=== PATIENT | male | born 1950 | race Asian ===

== ENCOUNTER 2016-03-03 22:01 | Inpatient (IN) | payer OTHER ==
[~2016-03-03] VITALS: Ht 175.3 cm; Wt 88.5 kg
[~2016-03-03 22:01] MED LIST: ASPIRIN81 M4 PO; CARVEDILOL3.125 M1 PO; LASIX20 MG PO; LISINOPRIL10 M1 PO; PLAVIX 75MG TAB75 MG PO; PROTONIX 40MG T40 MG PO; SIMVASTATIN40 MG PO
--- NOTE | 2016-03-03 22:15 | NUR ---
PT TO TRAIGE WITH MIDDLE ABD PAIN x3DAYS, TODAY PAIN IS CONSTANT AND 8/10, +NAUSEA, VOMITING [id number], AND DIARRHEA. PT DENIES CHEST PAIN, SOB,URINARY S/S. VSS. PT AFEBRILE. EKG DONE IN [place]. HX OF HTN,IL,CHF,MITRAL STENOSIS.
--- NOTE | 2016-03-03 23:10 | NUR ---
EVALUATED BY DR GIFFORD
--- NOTE | 2016-03-03 23:18 | ED GI/GU/ABDOMINAL COMPLAINT ---
See Addendum History of Present Illness General Chief Complaint: Abdominal Pain/Flank Pain Stated Complaint: ABD PAIN Source: patient, family, old records Exam Limitations: no limitations Vital Signs & Intake/Output Vital Signs & Intake/Output Vital Signs Date Time Temp Pulse Resp B/P Pulse O2 O2 Flow FiO2 Ox Delivery Rate 03/04 0848 96.4 79 18 133/72 94 Room Air 03/04 0635 96.7 90 18 123/73 93 Room Air 03/04 0335 97.3 76 18 148/87 95 Room Air 03/04 0034 96.3 80 20 142/66 94 Room Air 03/03 2211 97.5 84 16 174/98 95 Room Air ED Intake and Output 03/04 0000 03/03 1200 Intake Total Output Total Balance Patient 195 lb Weight Allergies Coded Allergies: NO KNOWN ALLERGIES (06/24/10) Reconcile Medications Amiodarone HCl 200 MG TABLET 200 MG PO BID HEART (Reported) Aspirin 325 MG TAB 1 TAB PO DAILY HEART/BLOOD (Reported) Carvedilol 12.5 MG TAB 1 TAB PO BID HEART/BP (Reported) Carvedilol (Coreg) 3.125 MG TABLET 3.125 MG PO BID HEART (Reported) Clopidogrel Bisulfate (Plavix) 75 MG TAB 1 TAB PO DAILY BLOOD THINNER ( Reported) Furosemide (Lasix) 20 MG TAB 1 TAB PO DAILY DIURETIC (Reported) Lisinopril 20 MG TAB 1 TAB PO DAILY BP (Reported) Pantoprazole Sodium (Protonix) 40 MG TAB 40 MG PO DAILY ACID REFLUX (Reported ) Simvastatin 40 MG TAB 40 MG PO DAILY CHOLESTEROL (Reported) Warfarin Sodium (Coumadin) 1 MG TABLET 1 MG PO D HEART (Reported) Triage Note: PT TO TRAIGE WITH MIDDLE ABD PAIN x3DAYS, TODAY PAIN IS CONSTANT AND 8/10, +NAUSEA, VOMITING [id number], AND DIARRHEA. PT DENIES CHEST PAIN, SOB,URINARY S/S. VSS. PT AFEBRILE. EKG DONE IN [place]. HX OF HTN,ME,CHF,MITRAL STENOSIS. Triage Nurses Notes Reviewed? yes HPI: Patient present with sharp stabbing pain in his mid abdomen that started yesterday evening. The patient vomited yesterday evening and then multiple times throughout the day today. Patient also had watery diarrhea this morning. The pain is constant. There is no radiation. There are no aggravating or mitigating factors. Patient denies any fevers or chills. Patient denies any chest pain or shortness of breath. Patient had a recent mitral valve replacement. The pain is 7 out of 10. (ИРИНА CHRISTINE,HENNA Soto) Past History Travel History Traveled to [place] past 21 day No Medical History Any Pertinent Medical History? see below for history Neurological: NONE EENT: NONE Cardiovascular: CHF, hypertension, hyperlipidemia, myocardial infarction, rheumatic fever with consequent mitral stenosis surgical mitral valvuloplasty performed in [place] over 40 years ago. supraventricular arrhythmia Respiratory: NONE Gastrointestinal: GERD, SBO Hepatic: NONE Renal: NONE Musculoskeletal: NONE Psychiatric: NONE Endocrine: NONE Blood Disorders: NONE Cancer(s): NONE History of MRSA: No History of VRE: No History of CDIFF: No Pneumonia Vaccine: 11/18/09 Surgical History Surgical History: CARDIAC CATH, MVR Psychosocial History Who do you live with Family Services at Home None What is your primary language Georgian Tobacco Use: Never used ETOH Use: denies use Illicit Drug Use: denies illicit drug use Family History Hx Contributory? No (HENNA GIFFORD MD) Review of Systems Review of Systems Constitutional: Reports: no symptoms. EENTM: Reports: no symptoms. Respiratory: Reports: no symptoms. Cardiovascular: Reports: no symptoms. GI: Reports: see HPI, abdominal pain, diarrhea, nausea, vomiting. Genitourinary: Reports: no symptoms. Musculoskeletal: Reports: no symptoms. Skin: Reports: no symptoms. Neurological/Psychological: Reports: no symptoms. Hematologic/Endocrine: Reports: no symptoms. Immunologic/Allergic: Reports: no symptoms. All Other Systems: Reviewed and Negative (HENNA GIFFORD MD) Physical Exam Physical Exam General Appearance: well developed/nourished, alert, awake, moderate distress Head: atraumatic Eyes: Bilateral: PERRL, EOMI, other (ANICTERIC). Ears, Nose, Throat, Mouth: hearing grossly normal, DRY MUCOSA Neck: normal inspection, supple, full range of motion Respiratory: normal breath sounds, chest non-tender, no respiratory distress, lungs clear Cardiovascular: regular rate/rhythm, normal peripheral pulses, systolic murmur Gastrointestinal: normal bowel sounds, soft, no organomegaly, tenderness ( PERIUMBILICAL), NO INCREASE IN BOWEL SOUNDS Back: normal inspection, normal range of motion Extremities: normal range of motion Neurologic/Psych: no motor/sensory deficits, awake, alert, oriented x 3, normal gait, normal mood/affect Skin: intact, normal color, warm/dry Core Measures ACS in differential dx? No Severe Sepsis Present: No Septic Shock Present: No (ИРИНА CHRISTINE,HENNA Soto) Progress Differential Diagnosis: AMI, biliary colic, bowel obstruction, cholecystitis, gastritis, hepatitis, ischemic bowel, inflamm bowel dis, pancreatitis, peptic ulcer, PUD/GERD, perforated viscous, SBO, UTI/pyelo Plan of Care: Orders Procedure Date/time Status Nothing by Mouth 03/04 L Active Patient Data 03/04 0934 Active OXYGEN SETUP (GEN) 03/04 921 Active Saline Lock 03/04 921 Active Admit to inpatient 03/04 921 Active Vital Signs 03/04 921 Active Activity/Ambulation 03/04 921 Active Code Status 03/04 921 Active Intake & Output 03/03 2351 Active URINALYSIS 03/03 2318 Complete TROPONIN LEVEL 03/03 2318 Complete PARTIAL THROMBOPLASTIN TIME 03/03 2318 Complete PROTHROMBIN TIME 03/03 2318 Complete LIPASE 03/03 2318 Complete COMPREHENSIVE METABOLIC PANEL 03/03 2318 Complete CBC WITHOUT DIFFERENTIAL 03/03 2318 Complete AMYLASE 03/03 2318 Complete EKG 03/03 2201 Active Laboratory Tests 03/04/16 0520: Urinalysis LIGHT H, Urine Color YEL, Urine Clarity CLEAR, Urine pH 5.5, Ur Specific Sherrill 1.010, Urine Protein TRACE H, Urine Ketones NEG, Urine Nitrite NEG, Urine Bilirubin NEG@ICTO, Urine Urobilinogen 1.0, Ur Leukocyte Esterase NEG , Ur Microscopic SEDIMENT EXAMINED, Urine RBC 1-3, Urine WBC 1-3 H, Urine Hemoglobin NEG, Urine Glucose NEG 03/03/16 2335: Anion Gap 11, Estimated GFR > 60, BUN/Creatinine Ratio 19.0, Glucose 105 H, Calcium 8.9, Total Bilirubin 1.1, AST 37, ALT 58, Alkaline Phosphatase 118, Troponin I < 0.01, Total Protein 7.7, Albumin 3.8, Globulin 3.9, Albumin/ Globulin Ratio 1.0 L, Amylase 65, Lipase 25, PT 23.1 H, INR 2.22 H, APTT 38 H, CBC w Diff NO MAN DIFF REQ, RBC 5.61, MCV 76.7 L, MCH 25.0 L, RDW 18.1 H, MPV 8.0, Gran % 74.9, Lymphocytes % 16.5 L, Monocytes % 7.0, Eosinophils % 1.3, Basophils % 0.3, Absolute Granulocytes 6.5, Absolute Lymphocytes 1.4, Absolute Monocytes 0.6, Absolute Eosinophils 0.1, Absolute Basophils 0, PUBS MCHC 32.5 L Diagnostic Imaging: Viewed by Me: CT Scan. Discussed w/RAD: CT Scan. Initial ED EKG: NSR, LVH, nonspecific ST T wave chg Prior EKG: unchanged Rhythm Strip: normal sinus rhythm Hand-Off Endorsed To: CAMPBELL ZAPATA MD Endorsed Time: 719 Pending: CT Comments: 03/04/2016 1:57:09 AM: Patient is feeling much better. There is no abdominal pain, nausea or vomiting. The son is going home. Patient will be observed in the emergency department for serial abdominal exams tonight. If he remains asymptomatic he can be discharged in the morning however if the pain and/or nausea return a CAT scan with PO contrast will be obtained. (ИРИНА CHRISTINE,HENNA Soto) Radiology Impression: Repeat CT with oral contrast: No change from prior. Dilated fluid-filled proximal small bowel with gradual transition to normal caliber bowel. The ingested enteric contrast remains mostly within the stomach with a small amount extending into the dilated bowel. This finding is nonspecific and could reflect delayed transit. There is wall thickening of a segment of the small bowel again noted which is suspicious for enteritis with possible partial obstruction. Follow-up radiographs of the abdomen could be performed in attempt to determine passage of contrast. Comments: After CT feels bloated with increased pain, nausea, weakness. (CAMPBELL ZAPATA MD) Departure Departure Disposition: STILL A PATIENT Condition: Stable Referrals: RASHI CHRISTINE,LAURA Muñoz (PCP/Family) Departure Forms: Customer Survey General Discharge Information (ИРИНА CHRISTINE,HENNA Soto) Departure Time of Disposition: 919 Clinical Impression Primary Impression: Partial small bowel obstruction Secondary Impressions: Lower abdominal pain, unspecified, Nausea, vomiting and diarrhea Admission Note Spoke With: EHSAN SAMUEL MD Documentation of Exam: Documentation of any treatments & extenuating circumstances including Concerns Regarding Discharge (functional status, medication knowledge or non-compliance, living conditions, etc.) that warrant an admission rather than observation: Nothing by mouth IV fluid IV analgesia IV antiemetic serial abdominal exam advance diet medication adjustment continuing care discharge planning (BENNY CHRISTINE,CAMPBELL)
--- NOTE | 2016-03-03 23:35 | NUR ---
IV ESTABLISHED LABS DRAWN AND SENT N/S 1L WIDE OPEN
[2016-03-03 23:45] LABS: ABSOLUTE BASOPHIL COUNT 0 /CUMM (0.0-0.2); ABSOLUTE EOSINOPHIL COUNT 0.1 /CUMM (0.0-0.7); ABSOLUTE GRANULOCYTE CT 6.5 /CUMM (1.4-6.5); ABSOLUTE LYMPH COUNT 1.4 /CUMM (1.2-3.4); ABSOLUTE MONOCYTE COUNT 0.6 /CUMM (0.10-0.60); BASOPHIL % 0.3 % (0.0-2.0); EOSINOPHIL % 1.3 % (0-5); GRANULOCYTE % 74.9 % (42.2-75.2); MEAN CORPUSCULAR HGB CONC 32.5 G/DL (33.0-37.0); MEAN CORPUSCULAR VOLUME 76.7 FL (80.0-94.0); PLATELET COUNT 225 /CUMM (130-400); RBC DISTRIBUTION WIDTH 18.1 % (11.5-14.5); RED BLOOD CELL CT 5.61 /CUMM (4.70-6.10); WHITE BLOOD CELL COUNT 8.7 /CUMM (4.8-10.8)
--- NOTE | 2016-03-03 23:51 | NUR ---
MEDICATED WITH ZOFRAN AND MORPHINE ORDEREDE
[2016-03-03] MEDS ORDERED: COUMADIN1 M1 PO (23:59)
[2016-03-03] MEDS ORDERED: AMIODARONE HCL200 M1 PO (23:59)
[2016-03-04] MEDS ORDERED: COREG3.125 MG PO
[2016-03-04 00:04] LABS: PT 23.1 SEC (9.4-12.5); PTT 38 SEC (25-37)
--- NOTE | 2016-03-04 01:52 | CT SCAN REPORT ---
EXAMINATION: CT ABDOMEN AND PELVIS WITH CONTRAST CLINICAL INFORMATION: Pain with vomiting and diarrhea. COMPARISON: Abdominal CT 02/10/2015. TECHNIQUE: Multidetector volumetric imaging was performed of the abdomen and pelvis before and after the IV administration of 94 mL of Optiray 320 intravenous contrast. Sagittal and coronal reformatted images were obtained on the technologist's workstation. FINDINGS: The lung bases are clear. The liver, spleen, gallbladder, and pancreas are normal. 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 The kidneys exhibit symmetric nephrograms without evidence of hydronephrosis or nephrolithiasis. There is a cyst within the medial aspect of the lower pole of the left kidney. There are multiple dilated fluid-filled loops of small bowel throughout the abdomen, a few of which appear thick-walled which is a new finding in comparison to the previous study and that may reflect an underlying enteritis or complication from partial obstruction. The degree of small bowel dilatation is increased in comparison to the 02/10/2015 study. There is gradual transition to relatively decompressed small bowel with no discrete transition point on the current exam to suggest a high grade bowel obstruction at this time though an evolving obstruction or partial obstruction is of concern. There is gas within the distal small bowel loops and within the large bowel. The appendix is normal. There is no free air and there is no intra-abdominal free fluid. No mesenteric or retroperitoneal adenopathy. The pelvic viscera are normal. No pelvic adenopathy. No free fluid within the pelvis. Fat-containing inguinal hernias bilaterally. There are no acute osseous abnormalities. Advanced multilevel facet arthropathy throughout the spine as well as hypertrophic opposing spinous processes. There is a 3.4 cm cyst within the left breast that can be further assessed with breast ultrasound. IMPRESSION: - There are multiple dilated fluid-filled loops of small bowel throughout the abdomen, a few of which appear thick-walled which is a new finding in comparison to the previous study and that may reflect an underlying enteritis or complication from partial obstruction. The degree of small bowel dilatation is increased in comparison to the 02/10/2015 study. There is gradual transition to relatively decompressed small bowel with no discrete transition point on the current exam to suggest a high grade bowel obstruction at this time though an evolving obstruction or partial obstruction is of concern. - There is a 3.4 cm cyst within the left breast that can be further assessed with breast ultrasound. - Fat-containing inguinal hernias bilaterally.
--- NOTE | 2016-03-04 02:41 | NUR ---
RE-EVALUATED BY DR GIFFORD FEELS FINE AT THIS TIME
--- NOTE | 2016-03-04 03:36 | NUR ---
PT MEDICATED WITH 4MG MORPHINE PER ORDER (SEE APR) FOR 08/18 ABD PAIN. VSS. DENIES ANY OTHER COMPLAINTS AT THIS TIME.
--- NOTE | 2016-03-04 05:10 | NUR ---
AMBULATED TO STATES HE PASSED ALOT OF GAS AND FEELS BETTER
--- NOTE | 2016-03-04 06:11 | NUR ---
SLEEPING AT PRESENT
--- NOTE | 2016-03-04 06:20 | NUR ---
PT DRINKING FIRST CONTRAST
--- NOTE | 2016-03-04 06:34 | NUR ---
OOB TO BR STATES LIQUID STOOL ,SECOND TIME IN LAST 90 MINUTES AND NOW FEELS MUCH BETTER
--- NOTE | 2016-03-04 07:01 | NUR ---
PT DRANK SECOND CONTRAST, 1/2 BOTTLE
--- NOTE | 2016-03-04 07:16 | NUR ---
ASSUMED CARE OF PT AT THIS TIME. PT RESTING ON STRETCHER, STATES HIS PAIN IS GONE AT THIS TIME. AWARE WAITING TO GO TO CT SCAN.
--- NOTE | 2016-03-04 08:03 | NUR ---
PT TO CT SCAN VIA STRETCHER AT THIS TIME.
--- NOTE | 2016-03-04 08:27 | CT SCAN REPORT ---
EXAMINATION: CT ABDOMEN AND PELVIS WITH CONTRAST CLINICAL INFORMATION: Abnormal CT. Pain with vomiting and diarrhea. COMPARISON: CT from 03/04/2016. Additional CT from 02/10/2015. TECHNIQUE: Multidetector volumetric imaging was performed from the superior aspect of the liver through the pubic symphysis following administration of oral contrast. Sagittal and coronal reformatted images were obtained on the technologist's workstation. DLP: 489 mGy-cm. FINDINGS: LUNG BASES: Minimal bibasilar atelectasis. Partial visualization of the cystic structure of the left breast, as seen on the recent prior. Mitral valve hardware noted. Coronary artery calcifications. LIVER, GALLBLADDER, AND BILIARY TREE: The liver is normal in size, shape, and attenuation. No focal hepatic lesion or biliary ductal dilatation is present. Small amount contrast seen within the gallbladder lumen. No wall thickening. No adjacent inflammatory change. PANCREAS: Unremarkable. SPLEEN: Unremarkable. ADRENAL GLANDS: Unremarkable. KIDNEYS AND URETERS: The kidneys are normal in size, shape, and attenuation. Bilateral contrast excretion noted from the recent contrast enhanced study. Left lower pole renal cyst. No hydronephrosis, hydroureter, or calculi seen. No perinephric stranding. BLADDER: The bladder is contrast filled. No wall thickening. GASTROINTESTINAL TRACT: The stomach appears unremarkable. It is filled with contrast. Contrast extends into the proximal small bowel. The jejunum is dilated. Small amount of contrast extends into the jejunum. There is no significant more distal transit. The appearance of the dilated proximal small bowel is similar to the prior study. This is also similar but increased compared to the more remote study from 02/10/2015. There is no focal abrupt transition point to decompressed small bowel. There is gradual tapering to normal caliber bowel. There is gas and stool seen throughout the colon. There is mild wall thickening of a portion of the small bowel, as seen on the recent prior. Normal appendix. No free air or free fluid. ABDOMINAL WALL: Prominent bilateral fat-containing hernias. LYMPH NODES: Normal. VASCULAR: Scattered atherosclerotic calcifications. PELVIC VISCERA: The prostate is unremarkable. There is prominence of the seminal vesicles, right greater than left with a somewhat lobulated appearance. This is similar to priors. OSSEOUS STRUCTURES: No acute or suspicious osseous abnormality. Mild multilevel degenerative changes of the spine. Mild to moderate degenerative changes of the hips. IMPRESSION: No change from prior. Dilated fluid-filled proximal small bowel with gradual transition to normal caliber bowel. The ingested enteric contrast remains mostly within the stomach with a small amount extending into the dilated bowel. This finding is nonspecific and could reflect delayed transit. There is wall thickening of a segment of the small bowel again noted which is suspicious for enteritis with possible partial obstruction. Follow-up radiographs of the abdomen could be performed in attempt to determine passage of contrast. Partially visualized left breast/chest wall cyst again noted.
--- NOTE | 2016-03-04 09:36 | NUR ---
DR. ZAPATA AT BEDSIDE TO UPDATE PATIENT ON PLAN OF CARE. PT CT SCAN SHOWED NO CHANGE, PT TO BE ADMITTED. PT C/O OF ABDOMINAL PAIN AND NAUSEA. PT MEDICATED WITH 4MG OF IV MORPHINE AND 4MG OF IV ZOFRAN PER eMAR.
--- NOTE | 2016-03-04 09:36 | NUR ---
IV FLUIDS STARTED AT 150ML/HR
--- NOTE | 2016-03-04 10:31 | NUR ---
HOUSE STAFF AT BEDSIDE FOR EVAL
--- NOTE | 2016-03-04 11:26 | NUR ---
PT MEDICATED PER EMAR AT THIS TIME.
[2016-03-04] MEDS ORDERED: PLAVIX75 M1 PAS (11:29)
--- NOTE | 2016-03-04 11:36 | History & Physical ---
ABRAHAM JOSEPH 03/04/16 1135: General Information and HPI MD Statement: I have seen and personally examined YAMEL BLOOM and documented this H&P. The patient is a 65 year old M who presented with a patient stated chief complaint of abdominal pain nausea and vomiting for 3-4 days []. Source of Information: patient, old records Exam Limitations: no limitations History of Present Illness: Patient is 65 year old Italian male with past medical history significant for recurrent small bowel obstruction lasting 2013, CAD status post stent placement in 2007, CABG and mitral valve replacement in November 2015 at [facility] with bioprosthetic valve, hypertension and hyperlipidemia came to chief complaint of abdominal pain, nausea and vomiting for 3 to 4 days that is getting worse since yesterday. He also admit for having loose bowel movements since yesterday and had 3-4 since morning. He denied nausea at this moment and he didn't vomit today. He denies chest pain, palpitations, shortness of breath, fever, chills, any urinary complaints. He endorses that after getting oral contrast today for abdominal CAT scan he is very bloated and his abdomen is tense afterwards. The signs on admission were temperature 96.5, pulse 79, respiratory rate 18, blood pressure 133/72 and patient is saturating 95% on room air. Labs are significant for WBC count 8.7, hemoglobin 14.0, hematocrit 43, platelet count 225, INR 2.22, sodium 141, potassium 3.7, BU and 19 and creatinine 1.0. Urine is clear and CT abdomen with oral contrast showed No change from prior. Dilated fluid-filled proximal small bowel with gradual transition to normal caliber bowel. The ingested enteric contrast remains mostly within the stomach with a small amount extending into the dilated bowel. This finding is nonspecific and could reflect delayed transit. There is wall thickening of a segment of the small bowel again noted which is suspicious for enteritis with possible partial obstruction. Follow-up radiographs of the abdomen could be performed in attempt to determine passage of contrast. Partially visualized left breast/chest wall cyst again noted. Allergies/Medications Allergies: Coded Allergies: NO KNOWN ALLERGIES (06/24/10) Home Med list Aspirin (Aspirin*) 81 MG TAB.CHEW 1 TAB PO DAILY HEART HEALTH (Reported) Carvedilol 3.125 MG TABLET 1 TAB PO BID HEART HEALTH (Reported) Clopidogrel Bisulfate (Plavix) 75 MG TABLET 1 TAB PAS DAILY BLOOD THINNER ( Reported) Furosemide (Lasix) 20 MG TAB 1 TAB PO DAILY DIURETIC (Reported) Lisinopril 10 MG TABLET 1 TAB PO DAILY HIGH BLOOD PRESSUIRE (Reported) Pantoprazole Sodium (Protonix) 40 MG TAB 40 MG PO DAILY ACID REFLUX (Reported ) Simvastatin 40 MG TAB 40 MG PO DAILY CHOLESTEROL (Reported) Warfarin Sodium (Coumadin) 1 MG TABLET 1 MG PO D HEART (Reported) Compliance With Home Meds: FAIR Past History Travel History Traveled to [place] past 21 day No Medical History Neurological: NONE EENT: NONE Cardiovascular: CHF, hypertension, hyperlipidemia, myocardial infarction, rheumatic fever with consequent mitral stenosis surgical mitral valvuloplasty performed in [place] over 40 years ago. supraventricular arrhythmia Respiratory: NONE Gastrointestinal: GERD, SBO Hepatic: NONE Renal: NONE Musculoskeletal: NONE Psychiatric: NONE Endocrine: NONE Blood Disorders: NONE Cancer(s): NONE History of MRSA: No History of VRE: No History of CDIFF: No Pneumonia Vaccine: 11/18/09 Surgical History Surgical History: CARDIAC CATH MVR Past Family/Social History Family History Relations & Conditions if any FATHER ([place] at age 63). MOTHER (CAD). Psychosocial History Services at Home: None ETOH Use: denies use Illicit Drug Use: denies illicit drug use Functional Ability ADLs Independent: dressing, eating, toileting, bathing. Ambulation: independent IADLs Independent: shopping, housework, finances, food prep, telephone, transportation , medication admin. Review of Systems Review of Systems Constitutional: Denies: chills, diaphoresis, fever, malaise. EENTM: Denies: blurred vision, double vision. Cardiovascular: Denies: chest pain, edema. Respiratory: Denies: cough, hemoptysis. GI: Reports: abdominal pain, bloating, diarrhea. Genitourinary: Denies: dysuria. Exam & Diagnostic Data Last 24 Hrs of Vital Signs/I&O Vital Signs Date Time Temp Pulse Resp B/P Pulse O2 O2 Flow FiO2 Ox Delivery Rate 03/04 1128 98.6 86 18 163/81 03/04 1125 98.6 86 18 163/81 03/04 1125 98.6 86 18 163/81 98 Room Air 03/04 0848 96.4 79 18 133/72 94 Room Air 03/04 0635 96.7 90 18 123/73 93 Room Air 03/04 0335 97.3 76 18 148/87 95 Room Air 03/04 0034 96.3 80 20 142/66 94 Room Air 03/03 2211 97.5 84 16 174/98 95 Room Air Intake & Output 03/04 1600 03/04 0800 03/04 0000 Intake Total Output Total Balance Patient 195 lb Weight Physical Exam General Appearance Alert, Oriented X3, Cooperative Skin No Rashes HEENT Atraumatic Cardiovascular Regular Rate, Normal S1, Normal S2, GRADE 2 SYSTOLIC MURMUR Lungs Clear to Auscultation Abdomen Normal Bowel Sounds, TENSE AND DISTENDED ABDOMEN WITH DIFFUSE TENDERNESS Last 24 Hrs of Labs/Armani: Laboratory Tests 03/04/16 0520: Urinalysis LIGHT H, Urine Color YEL, Urine Clarity CLEAR, Urine pH 5.5, Ur Specific [place] 1.010, Urine Protein TRACE H, Urine Ketones NEG, Urine Nitrite NEG, Urine Bilirubin NEG@ICTO, Urine Urobilinogen 1.0, Ur Leukocyte Esterase NEG , Ur Microscopic SEDIMENT EXAMINED, Urine RBC 1-3, Urine WBC 1-3 H, Urine Hemoglobin NEG, Urine Glucose NEG 03/03/16 2335: Anion Gap 11, Estimated GFR > 60, BUN/Creatinine Ratio 19.0, Glucose 105 H, Calcium 8.9, Magnesium 1.7, Total Bilirubin 1.1, AST 37, ALT 58, Alkaline Phosphatase 118, Troponin I < 0.01, Total Protein 7.7, Albumin 3.8, Globulin 3.9 , Albumin/Globulin Ratio 1.0 L, Amylase 65, Lipase 25, PT 23.1 H, INR 2.22 H, APTT 38 H, CBC w Diff NO MAN DIFF REQ, RBC 5.61, MCV 76.7 L, MCH 25.0 L, RDW 18.1 H, MPV 8.0, Gran % 74.9, Lymphocytes % 16.5 L, Monocytes % 7.0, Eosinophils % 1.3, Basophils % 0.3, Absolute Granulocytes 6.5, Absolute Lymphocytes 1.4, Absolute Monocytes 0.6, Absolute Eosinophils 0.1, Absolute Basophils 0, PUBS MCHC 32.5 L Diagnostic Data EKG Results Normal sinus rhythm with QTC of [address]-T wave changes Other Results SERVICE DATE: 03/03/16 EXAM TYPE: CAT - CT ABD & PELVIS W IV CONTRAST EXAMINATION: CT ABDOMEN AND PELVIS WITH CONTRAST CLINICAL INFORMATION: Pain with vomiting and diarrhea. COMPARISON: Abdominal CT 02/10/2015. TECHNIQUE: Multidetector volumetric imaging was performed of the abdomen and pelvis before and after the IV administration of 94 mL of Optiray 320 intravenous contrast. Sagittal and coronal reformatted images were obtained on the technologist's workstation. FINDINGS: The lung bases are clear. The liver, spleen, gallbladder, and pancreas are normal. 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 The kidneys exhibit symmetric nephrograms without evidence of hydronephrosis or nephrolithiasis. There is a cyst within the medial aspect of the lower pole of the left kidney. There are multiple dilated fluid-filled loops of small bowel throughout the abdomen, a few of which appear thick-walled which is a new finding in comparison to the previous study and that may reflect an underlying enteritis or complication from partial obstruction. The degree of small bowel dilatation is increased in comparison to the 02/10/2015 study. There is gradual transition to relatively decompressed small bowel with no discrete transition point on the current exam to suggest a high grade bowel obstruction at this time though an evolving obstruction or partial obstruction is of concern. There is gas within the distal small bowel loops and within the large bowel. The appendix is normal. There is no free air and there is no intra-abdominal free fluid. No mesenteric or retroperitoneal adenopathy. The pelvic viscera are normal. No pelvic adenopathy. No free fluid within the pelvis. Fat-containing inguinal hernias bilaterally. There are no acute osseous abnormalities. Advanced multilevel facet arthropathy throughout the spine as well as hypertrophic opposing spinous processes. There is a 3.4 cm cyst within the left breast that can be further assessed with breast ultrasound. IMPRESSION: - There are multiple dilated fluid-filled loops of small bowel throughout the abdomen, a few of which appear thick-walled which is a new finding in comparison to the previous study and that may reflect an underlying enteritis or complication from partial obstruction. The degree of small bowel dilatation is increased in comparison to the 02/10/2015 study. There is gradual transition to relatively decompressed small bowel with no discrete transition point on the current exam to suggest a high grade bowel obstruction at this time though an evolving obstruction or partial obstruction is of concern. - There is a 3.4 cm cyst within the left breast that can be further assessed with breast ultrasound. - Fat-containing inguinal hernias bilaterally. Assessment/Plan Assessment: Patient is 65 year old Italian male with past medical history significant for recurrent small bowel obstruction lasting 2013, CAD status post stent placement in 2007, CABG and mitral valve replacement in November 2015 at [facility] with bioprosthetic valve, hypertension and hyperlipidemia came to chief complaint of abdominal pain, nausea and vomiting for 3 to 4 days that is getting worse since yesterday and CAT scan done yesterday and today for abdomen and pelvis showed partial small bowel obstruction. We'll admit patient to general medical floor and will take it for the following issues Problem #1 nausea and vomiting with abdominal pain most likely due to partial small bowel obstruction -Vital signs every shift -Adequate electrolyte replacement, we will give a single dose of potassium to keep potassium more than 4 for now and we will follow-up on magnesium levels and replete if needed -We will obtain Surgical consultation and most likely patient would be managed conservatively -Will start patient on PPI prophylactically to reduce chances of stress ulcers -We will place NG tube with intermittent suction and after giving oral medications we will clamp NGT for an hour Problem #2 history of CAD, history of CABG and mitral valve replacement recently -We will confirm medications including carvedilol, Plavix, lisinopril, aspirin with Dr. Christine and will continue on his current home medications. Problem #3 history of atrial fibrillation currently in sinus rhythm but on anticoagulation Coumadin -We'll continue warfarin and will check INR daily and does him accordingly Problem #4 history of hyperlipidemia Problem #5 chest wall/breast cyst on CAT scan Can be pursued as outpatient by PCP Will continue statins. Patient is nothing by mouth Pharmacological DVT prophylaxis Patient is full code As Ranked By This Provider Problem List: 1. Nausea, vomiting and diarrhea 2. Partial small bowel obstruction Core Measures/Miscellaneous Acute Coronary Syndrome ACS Diagnosis: No Cerebrovascular Accident CVA/TIA Diagnosis: No Congestive Heart Failure CHF Diagnosis: No Venous Thromboembolism VTE Risk Factors: Age > 40 VTE Prophylaxis Ordered Inpt: [facility] prophylaxis d/t: No contraindications No VTE Pharm Prophylaxis d/t: No contraindications VTE Diagnosis: No VTE Type: NONE VTE Confirmed by (Test): NONE Severe Sepsis Severe Sepsis Present: No Septic Shock Septic Shock Present: No Miscellaneous Documentation Attending Case Discussed With: EVE ALVARES MD Primary Care Physician: LAURA MARKHAM MD Patient sees these Specialists [employer] Level of Patient Care: General Medicine Consults Needed: Consulting Specialty: General Surgery Resident Review Statement Resident Statement: examined this patient Other Findings: Patient is admitted by resident EVE ALVARES MD 03/04/16 1534: Attending MD Review Statement Attending Statement Attending Statement: examined this patient, discuss w/resident/PA/LAPEL PADDER, agreed w/resident/PA/LAPEL PADDER, reviewed EMR data (avail), discussed with nursing, reviewed images, amended to note Attending Assessment/Plan: 65 y/o M with h sig for ch systolic CHF, hypertension, hyperlipidemia, myocardial infarction, rheumatic fever history of cardiac cath, recent MVR as well as CABG, history of SBO. Patient p/w abd pain, nausea, vomiting and some diarrhea. Symptoms started 2 days ago. Patient started to vomit and had diarrhea this morning. He denies any bright red blood per rectum. He did complain of loose watery stools. The vomiting also had no hematemesis. He is complaining of abdominal pain with a tense abdomen. After inserting the NG tube , he's feeling some relief. He currently denies any chest pain or shortness of breath. Vital Signs Date Time Temp Pulse Resp B/P Pulse O2 O2 Flow FiO2 Ox Delivery Rate 03/04 1318 98.2 88 19 132/90 93 Room Air 03/04 1128 98.6 86 18 163/81 03/04 1125 98.6 86 18 163/81 03/04 1125 98.6 86 18 163/81 98 Room Air 03/04 0848 96.4 79 18 133/72 94 Room Air 03/04 0635 96.7 90 18 123/73 93 Room Air 03/04 0335 97.3 76 18 148/87 95 Room Air 03/04 0034 96.3 80 20 142/66 94 Room Air 03/03 2211 97.5 84 16 174/98 95 Room Air on exam; aox3, nad. cv; s1,s2, rrr. resp; clera abd; firm, generalized tenderness on palpation, bs hypoactive. ext; no edema. Laboratory Tests 03/04 03/03 0520 2335 Chemistry Sodium (137 - 145 mmol/L) 141 Potassium (3.5 - 5.1 mmol/L) 3.7 Chloride (98 - 107 mmol/L) 104 Carbon Dioxide (22 - 30 mmol/L) 26 Anion Gap (5 - 16) 11 BUN (9 - 20 mg/dL) 19 Creatinine (0.7 - 1.2 mg/dL) 1.0 Estimated GFR (>60 ml/min) > 60 BUN/Creatinine Ratio (7 - 25 %) 19.0 Glucose (65 - 99 mg/dL) 105 H Calcium (8.4 - 10.2 mg/dL) 8.9 Magnesium (1.6 - 2.3 mg/dL) 1.7 Total Bilirubin (0.2 - 1.3 mg/dL) 1.1 AST (17 - 59 U/L) 37 ALT (21 - 72 U/L) 58 Alkaline Phosphatase (< 127 U/L) 118 Troponin I (<0.11 ng/ml) < 0.01 Total Protein (6.3 - 8.2 g/dL) 7.7 Albumin (3.5 - 5.0 g/dL) 3.8 Globulin (1.9 - 4.2 gm/dL) 3.9 Albumin/Globulin Ratio (1.1 - 2.2 %) 1.0 L Amylase (30 - 110 U/L) 65 Lipase (23 - 300 U/L) 25 Coagulation PT (9.4 - 12.5 SEC) 23.1 H INR (0.90 - 1.17) 2.22 H APTT (25 - 37 SEC) 38 H Hematology CBC w Diff NO MAN DIFF REQ WBC (4.8 - 10.8 /CUMM) 8.7 RBC (4.70 - 6.10 /CUMM) 5.61 Hgb (14.0 - 18.0 G/DL) 14.0 Hct (42 - 52 %) 43.0 MCV (80.0 - 94.0 FL) 76.7 L MCH (27.0 - 31.0 PG) 25.0 L RDW (11.5 - 14.5 %) 18.1 H Plt Count (130 - 400 /CUMM) 225 MPV (7.4 - 10.4 FL) 8.0 Gran % (42.2 - 75.2 %) 74.9 Lymphocytes % (20.5 - 51.1 %) 16.5 L Monocytes % (1.7 - 9.3 %) 7.0 Eosinophils % (0 - 5 %) 1.3 Basophils % (0.0 - 2.0 %) 0.3 Absolute Granulocytes (1.4 - 6.5 /CUMM) 6.5 Absolute Lymphocytes (1.2 - 3.4 /CUMM) 1.4 Absolute Monocytes (0.10 - 0.60 /CUMM) 0.6 Absolute Eosinophils (0.0 - 0.7 /CUMM) 0.1 Absolute Basophils (0.0 - 0.2 /CUMM) 0 PUBS MCHC (33.0 - 37.0 G/DL) 32.5 L Urines Urinalysis LIGHT H Urine Color (YEL,AMB,STR) YEL Urine Clarity (CLEAR) CLEAR Urine pH (5.0 - 8.0) 5.5 Ur Specific [place] (1.001 - 1.035) 1.010 Urine Protein (NEG,<30 MG/DL) TRACE H Urine Ketones (NEG) NEG Urine Nitrite (NEG) NEG Urine Bilirubin (NEG) NEG@ICTO Urine Urobilinogen (0.1 - 1.0 EU/dl) 1.0 Ur Leukocyte Esterase (NEG) NEG Ur Microscopic SEDIMENT EXAMINED Urine RBC (0 - 5 /HPF) 1-3 Urine WBC (0 - 2 /HPF) 1-3 H Urine Hemoglobin (NEG) NEG Urine Glucose (N MG/DL) NEG CT abd/pelvis with IV contrast: IMPRESSION: - There are multiple dilated fluid-filled loops of small bowel throughout the abdomen, a few of which appear thick-walled which is a new finding in comparison to the previous study and that may reflect an underlying enteritis or complication from partial obstruction. The degree of small bowel dilatation is increased in comparison to the 02/10/2015 study. There is gradual transition to relatively decompressed small bowel with no discrete transition point on the current exam to suggest a high grade bowel obstruction at this time though an evolving obstruction or partial obstruction is of concern. - There is a 3.4 cm cyst within the left breast that can be further assessed with breast ultrasound. - Fat-containing inguinal hernias bilaterally. CT abd/pelvis with oral contrast. IMPRESSION: No change from prior. Dilated fluid-filled proximal small bowel with gradual transition to normal caliber bowel. The ingested enteric contrast remains mostly within the stomach with a small amount extending into the dilated bowel. This finding is nonspecific and could reflect delayed transit. There is wall thickening of a segment of the small bowel again noted which is suspicious for enteritis with possible partial obstruction. Follow-up radiographs of the abdomen could be performed in attempt to determine passage of contrast. Partially visualized left breast/chest wall cyst again noted. xray Abd; IMPRESSION: 1. The tip of the nasogastric tube is located within the proximal stomach. 2. The obstructed small bowel measures at least 4 cm diameter; no pneumoperitoneum. A/P; 65 y/o M with pmh sig for ch systolic CHF, hypertension, hyperlipidemia, myocardial infarction, rheumatic fever history of cardiac cath, recent MVR as well as CABG, history of SBO admitted with abdominal pain, nausea and vomiting secondary to partial small bowel obstruction. Patient admitted to medicine. NG tube was inserted. Please put it at low intermittent suction. Patient will need serial abdominal exams as well as serial abdominal x-rays. Please obtain another abdominal x-ray in the morning. Please make sure that electrolytes are repleted. Please keep potassium 4 orabove as well as magnesium 2 or above. With patient's history of chronic systolic CHF, we need to keep an eye on his respiratory status while he is getting gentle IV hydration. Please do not exceed the fluid rate more than 75 mL an hour. Please continue other home medications after confirming the right doses. Please consult surgery. INR therapeutic. Please dose Coumadin accordingly. Patient will be kept nothing by mouth. Patient is a full code.
--- NOTE | 2016-03-04 11:56 | NUR ---
PT VOMITED X1 IN ROOM. PT REMAINS PAIN FREE AT THIS TIME. MEDICATED WITH PROTONIX BY ANN MARIE ESPAÑA PER ORDER. HOUSE STAFF PAGED FOR NAUSEA MEDICATION.
--- NOTE | 2016-03-04 12:04 | NUR ---
PT ADMITTED TO ROOM 235-2
--- NOTE | 2016-03-04 12:23 | NUR ---
NG TUBE PLACED IN RIGHT NARE WITHOUT DIFFICULTY. XRAY ORDERED FOR PLACEMENT CHECK
--- NOTE | 2016-03-04 12:29 | NUR ---
REPORT TO FLOOR. OF PT LEFT ED AND STATES SHE WILL BE BACK LATER. PT STABLE FOR TRANSFER.
--- NOTE | 2016-03-04 12:32 | NUR ---
XRAY AT BEDSIDE FOR NG TUBE PLACEMENT
--- NOTE | 2016-03-04 13:09 | RADIOLOGY REPORT ---
EXAMINATION: XR PORTABLE ABDOMEN CLINICAL INFORMATION: NG tube placement COMPARISON: CXR from 10/26/2015. CT abdomen from 03/03/2015. TECHNIQUE: Abdomen, AP view (KUB) FINDINGS: Mild atelectasis in the left lung base. Mitral valve is replaced. The obstructed small bowel is dilated to at least 4 cm diameter. Within the examined mid and upper abdomen, there is no evidence of pneumatosis intestinalis or pneumoperitoneum. The tip of the nasogastric tube is located in the proximal stomach and the side-port of the tube is in the region of the esophagogastric junction. No acute findings within the degenerated spine. IMPRESSION: 1. The tip of the nasogastric tube is located within the proximal stomach. 2. The obstructed small bowel measures at least 4 cm diameter; no pneumoperitoneum.
[2016-03-04 13:18] VITALS: BP 132/90
--- NOTE | 2016-03-04 15:32 | Admission Certification ---
Admission Certification Certification Statement - As attending physician, I certify that at the time of - admission, based on clinical presentation, severity of - symptoms, need for further diagnostic testing and - therapeutic interventions, and risk of adverse outcomes - without in-hospital treatment, in my clinical assessment, - this patient requires an acute hospital stay for a minimum - of two nights or longer. I have also considered psychsocial - factors such as support system, advanced age, financial - issues, cognitive issues, and failed out-patient treatments, - past re-admission history, safety of patient, and lack of - compliance as applicable. Specific rationale supporting this admission is: Patient is admitted with SBO. Needs NG tube, surgical evaluation.
--- NOTE | 2016-03-04 16:08 | Cons- Cardiology ---
General Information and HPI Consulting Request Date of Consult: 03/04/16 Requested By: EVE ALVARES MD History of Present Illness: Reyes is a 64 year old male who carries a history of rheumatic heart disease, s/p surgical mitral valvuloplasty, performed in [place] approximately 40 years ago. dysrhythmia treated with Verapamil. This patient is now s/p cardiac surgery by Dr. Earl who placed a #25 Magna Ease pericardial valve in the mitral position. He also placed a fraft to the patient's LAD. Although LCX disease was noted on his cardiac catheterization, no bypass grafts were placed to the obtuse marginal branches of the LCX. His post operative course was complicated by atrial fibrillation but he is currently in a sinus rhythm. He now is much improved from a cardiac standpoint and is moderately active without chest pain, pressure, tightness, shortness of breath, lightheadedness or palpitations. Reyes presented to the hospital for evaluation of abdominal discomfort and distention accompanied by vomiting and the inability to hold down food or pills. He had frequent urges to move his bowels. Reyes was found to have a partial small bowel obstruction. This is a recurrent problem that he also had in the recent past. His last stress test showed an exercise tolerance of 6minutes and 8seconds following Joshua protocol with horizontal to downsloping ST depressions inferiorly with upsloping ST segments in the lateral leads. Rare PVC's noted. Nuclear imaging showed an EF of 36% with mild septal and anteroseptal hypokinesis. A moderate mid to apical anteroseptal primarily fixed defect was noted with minimal periinfarct ischemia. To Review Mr. Beal's Prior History: In May of 2007, the patient experienced an ST elevation anterior wall OR. A cardiac catheterization showed a nonexistent left main with separate take-off of the left circumflex and LAD. The LAD harbored a 99% long proximal stenosis which crossed the first and second diagonal branches. The first diagonal branch was a small to moderate size vessel with a 99% ostial stenosis. The second diagonal branch was a small vessel with a 95% ostial stenosis. The left circumflex had luminal irregularities and the right coronary artery was a dominant vessel with a 95% mid-stenosis. There was also a large RV marginal branch with a 95% ostial stenosis. This was a long diffusely diseased branch. Left ventriculography at the time showed an overall EF of 30% with inferoapical, apical, and anteroapical akinesis. In consideration of the above anatomy, the patient had a 2.75 x 28 mm Liberte` stent placed in the LAD. Postprocedure, he had a short run of nonsustained ventricular tachycardia. We then brought the patient back to [facility] for angioplasty to the right coronary artery which received a 2.75 x 24 mm Liberte` stent. Both procedures went well with 0% residual stenosis. Allergies/Medications Allergies: Coded Allergies: NO KNOWN ALLERGIES (06/24/10) Home Med List: Aspirin (Aspirin*) 81 MG TAB.CHEW 1 TAB PO DAILY HEART HEALTH (Reported) Carvedilol 3.125 MG TABLET 1 TAB PO BID HEART HEALTH (Reported) Clopidogrel Bisulfate (Plavix) 75 MG TABLET 1 TAB PAS DAILY BLOOD THINNER ( Reported) Furosemide (Lasix) 20 MG TAB 1 TAB PO DAILY DIURETIC (Reported) Lisinopril 10 MG TABLET 1 TAB PO DAILY HIGH BLOOD PRESSUIRE (Reported) Pantoprazole Sodium (Protonix) 40 MG TAB 40 MG PO DAILY ACID REFLUX (Reported ) Simvastatin 40 MG TAB 40 MG PO DAILY CHOLESTEROL (Reported) Warfarin Sodium (Coumadin) 1 MG TABLET 1 MG PO D HEART (Reported) Past History Travel History Traveled to [place] past 21 day No Medical History Neurological: NONE EENT: NONE Cardiovascular: CHF, hypertension, hyperlipidemia, myocardial infarction, rheumatic fever with consequent mitral stenosis. Valvuloplasty in [place] 40 years ago. stenosis surgical mitral valvuloplasty performed in [place] over 40 years ago. supraventricular arrhythmia Respiratory: NONE Gastrointestinal: GERD, SBO Hepatic: NONE Renal: NONE Musculoskeletal: NONE Psychiatric: NONE Endocrine: NONE Blood Disorders: NONE Cancer(s): NONE Surgical History Surgical History: mitral valve replacement with #25 Magna Ease pericardial valve , bypass graft to LAD at the time of valve replacement Family History Relations & Conditions If Any: FATHER (OR at age 63). MOTHER (CAD). Psychosocial History Services at Home: None Smoking Status: Never Smoked ETOH Use: denies use Illicit Drug Use: denies illicit drug use Functional Ability ADLs Independent: dressing, eating, toileting, bathing. Ambulation: independent IADLs Independent: shopping, housework, finances, food prep, telephone, transportation , medication admin. Exam & Diagnostic Data Vital Signs and I&O Vital Signs Date Time Temp Pulse Resp B/P Pulse O2 O2 Flow FiO2 Ox Delivery Rate 03/04 1318 98.2 88 19 132/90 93 Room Air 03/04 1128 98.6 86 18 163/81 03/04 1125 98.6 86 18 163/81 03/04 1125 98.6 86 18 163/81 98 Room Air 03/04 0848 96.4 79 18 133/72 94 Room Air 03/04 0635 96.7 90 18 123/73 93 Room Air 03/04 0335 97.3 76 18 148/87 95 Room Air 03/04 0034 96.3 80 20 142/66 94 Room Air 03/03 2211 97.5 84 16 174/98 95 Room Air Intake & Output 03/04 1600 03/04 0800 03/04 0000 03/03 1600 03/03 0800 03/03 0000 Intake Total 500 Output Total 50 Balance 450 Intake, Other 500 Output, 50 Gastric Drainage Patient 195 lb Weight Physical Exam: General: WD/ obese male in NAD; alert and oriented x3 HEENT: NC/ AT, PERRL, EOMI, clear oropharynx Neck: no JVD, no carotid bruit heart: RRR with ectopy and 3/6b systolic murmur at the RUSB Lungs: clear bilaterally Abdomen: soft, distended, tympanic, mildly tender with decreased bowel sounds Extremities: no edema Assessment/Plan Assessment/Plan * This patient is doing well from a cardiac standpoint. He has no evidence of myocardial ischemia or decompensated congestive heart failure. He is doing better after his biologic mitral valve replacement. Since has has been in a stable sinus rhythm his coumadin may be stopped. * At present this patient appears to have a well controlled blood pressure and heart rate. If keeping down medications proves to be a problem then this patient can be given an IV ACEI. He should be on Lasix 20mg daily, Atorvastatin 40mg daily, Lisinopril 10mg daily, Carvedilol 3.125mg BID and aspirin 162mg daily. Coumadin will be stopped. * Please obtain an echocardiogram to assess his EF and bioprosthetic valve. Consult Acknowledgment - Thank you for your consult request.
--- NOTE | 2016-03-04 16:31 | PN- General Surgery ---
Surgical Brief Attending Note Brief Attending Note: Asked to evaluate pt for possible SBO pt seen and examined and records reviewed. Pt developed diarrhea yesterday followed by vomiting and has continued to have some loose stool since admission No prior abdominal surgery although has a long hx of presentations similar to this the last being in 2013 when he was seen and admitted to [facility]. His CT scan shows both small bowel and colonic gas without any obvious obstruction but the small bowel is abnormally dilated. pt may have a gastroenteritis or infectious diarrhea Has Ng tube in place now and abdomen is distended and tympanitic but no peritoneal signs or tenderness to palpation Agree with NPO and NG tube and culture stool will follow but I suspect this will resolve with bowel rest
[2016-03-04 21:00] VITALS: BP 130/84
[2016-03-05 06:43] VITALS: BP 136/80
[2016-03-05 07:56] LABS: ABSOLUTE BASOPHIL COUNT 0 /CUMM (0.0-0.2); ABSOLUTE EOSINOPHIL COUNT 0.2 /CUMM (0.0-0.7); ABSOLUTE GRANULOCYTE CT 3.3 /CUMM (1.4-6.5); ABSOLUTE LYMPH COUNT 1.4 /CUMM (1.2-3.4); ABSOLUTE MONOCYTE COUNT 0.6 /CUMM (0.10-0.60); BASOPHIL % 0.4 % (0.0-2.0); EOSINOPHIL % 3.9 % (0-5); GRANULOCYTE % 59.5 % (42.2-75.2); MEAN CORPUSCULAR HGB 25.5 PG (27.0-31.0); MEAN CORPUSCULAR HGB CONC 33.2 G/DL (33.0-37.0); MEAN CORPUSCULAR VOLUME 76.8 FL (80.0-94.0); MEAN PLATELET VOLUME 8.3 FL (7.4-10.4); PLATELET COUNT 171 /CUMM (130-400); RED BLOOD CELL CT 4.63 /CUMM (4.70-6.10); WHITE BLOOD CELL COUNT 5.5 /CUMM (4.8-10.8)
--- NOTE | 2016-03-05 08:15 | PN- Housestaff ---
DOLORES CHRISTINE,LINDA 03/05/16 0815: Subjective Follow-up For: Abdominal pain, nausea, vomiting Subjective: Patient today lying comfortably on the bed denies overnight events. Denies nausea, vomiting, abdominal pain. Currently on NG tube suction with about 100 mL suctioned overnight. Appears to be bilious no blood seen. Able to pass gas Denies fever, chills, chest pains, difficulty breathing, palpitations. Review of Systems Constitutional: Reports: see HPI. Objective Last 24 Hrs of Vital Signs/I&O Vital Signs Date Time Temp Pulse Resp B/P Pulse O2 O2 Flow FiO2 Ox Delivery Rate 03/05 0643 98.3 85 20 136/80 91 Room Air 03/04 2142 99.6 95 18 130/84 03/04 2100 99.6 95 18 130/84 92 Room Air 03/04 1318 98.2 88 19 132/90 93 Room Air 03/04 1128 98.6 86 18 163/81 03/04 1125 98.6 86 18 163/81 03/04 1125 98.6 86 18 163/81 98 Room Air Intake & Output 03/05 1600 03/05 0800 03/05 0000 Intake Total 690 Output Total 250 375 Balance -250 315 Intake, IV 450 Intake, Oral 240 Number 1 Bowel Movements Output, 100 Gastric Drainage Output, Urine 150 375 Physical Exam General Appearance: Alert, Oriented X3, Cooperative, No Acute Distress Skin: No Rashes Cardiovascular: Regular Rate, Normal S1, Normal S2, systolic murmur present in the parasternal area Lungs: Clear to Auscultation Abdomen: Normal Bowel Sounds, Soft, No Tenderness Extremities: No Clubbing, No Cyanosis, No Edema Current Medications: Current Medications Sig/Krystal Start time Last Medication Dose Route Stop Time Status Admin Acetaminophen 650 MG Q6P PRN 03/04 1145 AC PO Acetaminophen 1,000 MG BID PRN 03/04 1145 AC IV Aspirin 162 MG DAILY 03/05 1000 AC PO Aspirin 0 .STK-MED ONE 03/04 1119 DC PO Aspirin 81 MG DAILY 03/04 1025 DC 03/04 PO 1125 Atorvastatin Calcium 40 MG 1700 03/04 1700 AC 03/04 PO 1747 Carvedilol 3.125 MG BID 03/04 2200 AC 03/04 PO 2142 Carvedilol 12.5 MG BID 03/04 1026 DC 03/04 PO 1128 Furosemide 0 .STK-MED ONE 03/04 1119 DC PO Furosemide 20 MG DAILY 03/04 1027 AC 03/04 PO 1125 Lidocaine 0 .STK-MED ONE 03/04 1204 DC TOP Lisinopril 0 .STK-MED ONE 03/04 1119 DC PO Lisinopril 10 MG DAILY 03/04 1028 AC 03/04 PO 1125 Morphine Sulfate 4 MG Q4P PRN 03/04 1145 AC 03/04 IV 1329 Morphine Sulfate 4 MG ONCE ONE 03/04 0930 DC 03/04 IV 03/04 0931 0937 Morphine Sulfate 0 .STK-MED ONE 03/04 09 DC .ROUTE Ondansetron HCl 4 MG ONCE ONE 03/04 0930 DC 03/04 IV 03/04 0931 0937 Ondansetron HCl 0 .STK-MED ONE 03/04 09 DC .ROUTE Pantoprazole Sodium 0 .STK-MED ONE 03/04 1150 DC IV Pantoprazole Sodium 40 MG DAILY 03/04 1134 AC 03/04 IV 1153 Potassium Chloride 10 MEQ Q1H 03/04 2130 DC 03/05 IV 03/04 2231 0057 Promethazine HCl 12.5 MG ONCE ONE 03/04 1200 DC IV 03/04 1201 Sodium Chloride 1,000 ML Q13H 03/04 2130 AC 03/04 IV 03/05 1029 2144 Sodium Chloride 1,000 ML ONCE ONE 03/04 0930 DC 03/04 IV 03/04 1609 0937 Warfarin Sodium 1 MG COUMADIN 1700 ONE 03/04 1700 DC 03/04 PO 03/04 1701 1747 Warfarin Sodium 1 MG .[D] 03/04 1030 CAN PO Last 24 Hrs of Lab/Armani Results Last 24 Hrs of Labs/Mics: Laboratory Tests 03/05/16 0635: Anion Gap 8, Estimated GFR > 60, BUN/Creatinine Ratio 18.9, Magnesium 1.7, PT 31.6 H, INR 3.04 H, CBC w Diff NO MAN DIFF REQ, RBC 4.63 L, MCV 76.8 L, MCH 25.5 L, RDW 18.0 H, MPV 8.3, Gran % 59.5, Lymphocytes % 25.1, Monocytes % 11.1 H, Eosinophils % 3.9, Basophils % 0.4, Absolute Granulocytes 3.3, Absolute Lymphocytes 1.4, Absolute Monocytes 0.6, Absolute Eosinophils 0.2, Absolute Basophils 0, PUBS MCHC 33.2 Microbiology 03/04 2255 STOOL: Stool Culture - RECD Assessment/Plan Assessment: 65 year old male with past medical history significant for recurrent small bowel obstruction lasting 2013, CAD status post stent placement in 2007, CABG and mitral valve replacement in November 2015 at [place] with bioprosthetic valve, hypertension and hyperlipidemia came to chief complaint of abdominal pain, nausea and vomiting for 3 to 4 days that is getting worse since yesterday. CAT scan showed multiple dilated fluid-filled loops of the small bowel throughout the abdomen. 1. Recurrent Small bowel obstruction: - Currently nothing by mouth -NG suction. Since the overnight suction is 100 mL Will discuss with surgery and consider starting him on a clear liquid diet. -No evidence of infection hence off of antibiotics. -We'll keep him admission and potassium more than 4 and admission more than 2 - Stool culture reports pending 3. CAD/stents/heart failure reduced ejection fraction: Patient appears to be stable -Cardiology following the patient next in-we'll continue his cardiac meds occluding beta blockers,, aspirin, statins. - Echocardiogram to assess his ejection fraction and bioprosthetic valve ordered which is pending 3. History of atrial fibrillation currently in sinus rhythm for a while: -Per cardiology recommendation will discontinue Coumadin 4. History of rheumatic heart disease status post mitral valvuloplasty 40 as ago, recently is on a bioprosthetic valve 5. Acute drop in H&H: - Could be hemodilution as all his saline test droped - We'll check guaiac - BUN and creatinine are stable hence unlikely hemolysis - Patient remained asymptomatic, no need for transfusion and to monitor 6. Incidental finding of cyst in the left breast: - Will need outpatient evaluation with breast ultrasound - She follows Dr. Cloud. Will discuss with her and recommend for outpatient follow-up Full CODE STATUS Nothing by mouth DVT prophylaxis on Coumadin Problem List: 1. Nausea, vomiting and diarrhea 2. Partial small bowel obstruction Pain Ratin Pain Location: Abdomen Pain Goal: Remain pain free Pain Plan: Morphine Tomorrow's Labs & Rationales: Will need labs Consulting Request: Consulting Specialty: General Surgery DIA CHRISTIEN,[facility] 03/05/16 1307: Attending MD Review Statement Attending Statement Attending MD Statement: examined this patient, discuss w/resident/PA/DENITRATOR, agreed w/resident/PA/DENITRATOR, reviewed EMR data (avail), discussed with nursing, discussed with case mgmt, reviewed images, amended to note Attending Assessment/Plan: Patient seen and examined, overall feeling better. Left abdominal pain and less distended abdomen. Vital Signs Date Time Temp Pulse Resp B/P Pulse O2 O2 Flow FiO2 Ox Delivery Rate 03/05 1044 130/82 03/05 1044 130/82 03/05 0643 98.3 85 20 136/80 91 Room Air 03/04 2142 99.6 95 18 130/84 03/04 2100 99.6 95 18 130/84 92 Room Air 03/04 1318 98.2 88 19 132/90 93 Room Air on exam; aox3, nad. cv; s1,s2, rrr. resp; clear abd; soft, nt, bs+ ext; no edema. Laboratory Tests 03/05 0635 Chemistry Sodium (137 - 145 mmol/L) 141 Potassium (3.5 - 5.1 mmol/L) 4.3 Chloride (98 - 107 mmol/L) 110 H Carbon Dioxide (22 - 30 mmol/L) 22 Anion Gap (5 - 16) 8 BUN (9 - 20 mg/dL) 17 Creatinine (0.7 - 1.2 mg/dL) 0.9 Estimated GFR (>60 ml/min) > 60 BUN/Creatinine Ratio (7 - 25 %) 18.9 Magnesium (1.6 - 2.3 mg/dL) 1.7 Coagulation PT (9.4 - 12.5 SEC) 31.6 H INR (0.90 - 1.17) 3.04 H Hematology CBC w Diff NO MAN DIFF REQ WBC (4.8 - 10.8 /CUMM) 5.5 RBC (4.70 - 6.10 /CUMM) 4.63 L Hgb (14.0 - 18.0 G/DL) 11.8 L Hct (42 - 52 %) 35.5 L MCV (80.0 - 94.0 FL) 76.8 L MCH (27.0 - 31.0 PG) 25.5 L RDW (11.5 - 14.5 %) 18.0 H Plt Count (130 - 400 /CUMM) 171 MPV (7.4 - 10.4 FL) 8.3 Gran % (42.2 - 75.2 %) 59.5 Lymphocytes % (20.5 - 51.1 %) 25.1 Monocytes % (1.7 - 9.3 %) 11.1 H Eosinophils % (0 - 5 %) 3.9 Basophils % (0.0 - 2.0 %) 0.4 Absolute Granulocytes (1.4 - 6.5 /CUMM) 3.3 Absolute Lymphocytes (1.2 - 3.4 /CUMM) 1.4 Absolute Monocytes (0.10 - 0.60 /CUMM) 0.6 Absolute Eosinophils (0.0 - 0.7 /CUMM) 0.2 Absolute Basophils (0.0 - 0.2 /CUMM) 0 PUBS MCHC (33.0 - 37.0 G/DL) 33.2 A/P; 65 y/o M with pmh sig for ch systolic CHF, hypertension, hyperlipidemia, myocardial infarction, rheumatic fever history of cardiac cath, recent MVR as well as CABG, history of SBO admitted with abdominal pain, nausea and vomiting secondary to partial small bowel obstruction. Abdominal x-ray today shows improvement. Appreciate surgery input. Patient will be started on clear liquid diet. Can DC NG tube. Will advance the diet as tolerated. If patient tolerates diet, will switch all the medications to oral including PPI and pain medications. Appreciate cardiology input. Please follow -up on echo results. Continue cardiac medications. As noted in Dr. Christine's note. Patient does not need to be on coumadin. Will stop the coumadin.
[2016-03-05 08:17] LABS: PT 31.6 SEC (9.4-12.5)
[2016-03-05 08:23] LABS: HEMATOCRIT 35.5 % (42-52)
--- NOTE | 2016-03-05 11:48 | RADIOLOGY REPORT ---
EXAMINATION: XR ABDOMEN CLINICAL INDICATION: Abdominal distention. Presumptive diagnosis of small bowel obstruction. COMPARISON: [facility] dated 03/04/2016. CT scan of the abdomen and pelvis dated 03/04/2016. TECHNIQUE: Frontal view of the abdomen performed in 2 parts. FINDINGS: Interval decompression of the multiple abnormally dilated loops of small bowel is seen. There is a persistent mildly dilated and thick walled appearing loop of small bowel in the left upper quadrant. Remainder of small bowel loops are decompressed. Orally ingested contrast is seen outlining the transverse and descending colon and rectum, which are all decompressed. The bladder is partially outlined with contrast and appears unremarkable. An enteric tube is seen with side port just beyond the GE junction and tip in the gastric fundus region. Multilevel flowing vertebral marginal osteophytes are again noted. Mild degenerative changes are seen in the hips bilaterally. IMPRESSION: 1. Significant improvement in the degree of dilatation of small bowel loops with only a single small bowel loop in the left upper quadrant remaining abnormally dilated and thick-walled. Findings are suggestive of focal enteritis, of uncertain etiology. Close clinical correlation is requested. 2. No evidence of bowel obstruction. 3. Enteric tube tip in region of the gastric fundus with side port just beyond the GE junction.
--- NOTE | 2016-03-05 12:01 | PN- General Surgery ---
Subjective Subjective: Patient reports no acute overnight events. He states that he is feeling better. He states that he was able to pass flatus and have a small bowel movement. He denies chest pain, shortness of breath, difficulty breathing. He denies discomfort to his bilateral upper and lower extremities. He denies nausea and vomiting at the present time. Objective Vital Signs and I&Os Vital Signs Date Time Temp Pulse Resp B/P Pulse O2 O2 Flow FiO2 Ox Delivery Rate 03/05 1044 130/82 03/05 1044 130/82 03/05 0643 98.3 85 20 136/80 91 Room Air 03/04 2142 99.6 95 18 130/84 03/04 2100 99.6 95 18 130/84 92 Room Air 03/04 1318 98.2 88 19 132/90 93 Room Air Intake & Output 03/05 1600 03/05 0800 03/05 0000 03/04 1600 03/04 0800 03/04 0000 Intake Total 690 575 Output Total 250 375 90 Balance -250 315 485 Intake, IV 450 75 Intake, Oral 240 Intake, Other 500 Number 1 Bowel Movements Output, 100 90 Gastric Drainage Output, Urine 150 375 Patient 195 lb Weight Physical Exam: Gen.: Alert and oriented 3, no acute distress Cardiac: Regular rhythm and rate, S1-S2 Pulmonary: Bilateral lung sounds clear to auscultation Abdomen: Soft, nondistended, positive bowel sounds auscultated no tenderness on exam Extremities: Moves all extremities, distal sensation is intact. Skin warm and well perfused. Bilateral calves soft and nontender Assessment/Plan Assessment/Plan This is a 65-year-old male who is admitted to the hospital for evaluation of a possible small bowel obstruction versus gastroenteritis. He underwent therapy with placement of nasogastric tube and bowel rest following decompression. He appears to be resolving. - Remove NG tubE -Okay to start clear liquid diet -Surgery will continue to follow
[2016-03-05 15:25] VITALS: BP 140/70
--- NOTE | 2016-03-05 17:09 | ECHOCARDIOGRAM REPORT ---
YAMEL BLOOM Age: 65 : 1950 Gender: M Exam Date: 03/04/2016 19:51 Exam Location: [facility] Ht (in): 69 Wt (lb): 195 BSA: 2.10 BP: 132 / 90 Ordering Physician: FOZIA HAM MD Referring Physician: Binu Christine MD, PhD Technologist: Corinne Monea [facility] Room Number: 235-02 Indications: STRUCTURAL HEART DISEASE, S/P MVR Rhythm: Sinus Technical Quality: technically limited FINDINGS Left Ventricle Normal left ventricular size and wall thickness. Low normal systolic function with distal septal hypokinesis. Normal left ventricular diastolic filling pattern for age. The ejection fraction is visually estimated at 50%. Right Ventricle The right ventricle is normal in size and function. Right Atrium The right atrium is normal in size. Left Atrium The left atrium is moderate to severely enlarged. The interatrial septum is intact. Mitral Valve Normally seated and mildly sclerotic bioprosthetic mitral valve with mild stenosis. There is trace mitral regurgitation. Aortic Valve Structurally normal aortic valve without significant sclerosis or stenosis. There is trace aortic regurgitation. Tricuspid Valve The tricuspid valve is normal in structure and function. There is mild tricuspid regurgitation. Pulmonary artery systolic pressure is mildly elevated to 46mmHg. Pulmonic Valve Structurally normal pulmonic valve. There is trace pulmonic regurgitation. Pericardium Normal pericardium without effusion. No pleural effusion. Great Vessels Normal aortic root dimension. The aortic arch and great vessels are well seen and are normal. CONCLUSIONS 1. Low normal EF of 50% with distal septal hypokinesis. 2. Moderate to severe left atrial enlargement. 3. Trace mitral regurgitation. Normally seated bioprosthetic mitral valve with mild stenosis. 4. Mild tricuspid regurgitation. 5. Trace aortic regurgitation. 6. Trace pulmonic regurgitation. 7. Mild pulmonary hypertension. Binu Christine M.D. (Electronically Signed) Final Date: 05 March 2016 17:09 MEASUREMENTS (Male / Female) Normal Values 2D ECHO LV Diastolic Diameter PLAX 5.4 cm 4.2 - 5.9 / 3.9 - 5.3 cm LV Systolic Diameter PLAX 4.0 cm 2.1 - 4.0 cm LV Fractional Shortening PLAX 25.9 % 25 - 46 % LV Ejection Fraction 2D Teich 50.5 % IVS Diastolic Thickness 1.1 cm LVPW Diastolic Thickness 1.1 cm LV Relative Wall Thickness 0.4 RV Internal Dim ED PLAX 2.9 cm 1.9 - 3.8 cm LVOT Diameter 2.1 cm Aortic Root Diameter 2.9 cm LA Systolic Diameter LX 5.2 cm 3.0 - 4.0 / 2.7 - 3.8 cm LA Volume 48.0 cm 18 - 58 / 22 - 52 cm Ascending Aorta Diameter 3.1 cm DOPPLER AV Peak Velocity 249.0 cm/s AV Peak Gradient 24.8 mmHg AV Mean Velocity 175.0 cm/s AV Mean Gradient 14.0 mmHg AV Velocity Time Integral 49.1 cm LVOT Peak Velocity 125.0 cm/s LVOT Peak Gradient 6.3 mmHg LVOT Mean Velocity 89.1 cm/s LVOT Mean Gradient 4.0 mmHg LVOT Velocity Time Integral 23.8 cm LVOT Stroke Volume 82.4 cm AV Area Cont Eq vti 1.7 cm AV Area Cont Eq pk 1.7 cm MV Peak Velocity 246.0 cm/s MV Peak Gradient 24.2 mmHg MV Mean Velocity 151.0 cm/s MV Mean Gradient 11.0 mmHg Mitral E Point Velocity 203.0 cm/s Mitral A Point Velocity 150.0 cm/s Mitral E to A Ratio 1.4 MV PHT Velocity 250.0 cm/s MV Deceleration [place] 898.0 cm/s MV Pressure Half Time 83.5 ms MV Area PHT 2.6 cm MV Deceleration Time 238.0 ms TR Peak Velocity 300.0 cm/s TR Peak Gradient 36.0 mmHg Right Atrial Pressure 10.0 mmHg Pulmonary Artery Systolic Pressu 46.0 mmHg Right Ventricular Systolic Press 46.0 mmHg PV Peak Velocity 99.2 cm/s PV Peak Gradient 3.9 mmHg PV Mean Velocity 73.8 cm/s PV Mean Gradient 2.0 mmHg PV Velocity Time Integral 19.1 cm LV E' Lateral Velocity 7.0 cm/s Mitral E to LV E' Lateral Ratio 28.9 LV E' Septal Velocity 4.3 cm/s Mitral E to LV E' Septal Ratio 47.3
--- NOTE | 2016-03-05 20:09 | PN- Cardiology ---
Subjective Subjective: * Patient is eating a light diet and keeping it down. Able to take medications. * low normal EF on echo with mild stenosis of bioprosthetic mitral valve. * no bowel obstruction on most recent imaging but possible enteritis * INR 3.04 Objective Vital Signs and I&Os Vital Signs Date Time Temp Pulse Resp B/P Pulse O2 O2 Flow FiO2 Ox Delivery Rate 03/05 1525 97.5 77 20 140/70 94 03/05 1044 130/82 03/05 1044 130/82 03/05 0643 98.3 85 20 136/80 91 Room Air 03/04 2142 99.6 95 18 130/84 03/04 2100 99.6 95 18 130/84 92 Room Air Intake & Output 03/05 1600 03/05 0800 03/05 0000 03/04 1600 03/04 0800 03/04 0000 Intake Total 300 690 575 Output Total 250 375 90 Balance 300 -250 315 485 Intake, IV 450 75 Intake, Oral 300 240 Intake, Other 500 Number 1 Bowel Movements Output, 100 90 Gastric Drainage Output, Urine 150 375 Patient 195 lb Weight Physical Exam: General: WD/ obese male in NAD; alert and oriented x3 Neck: no JVD, no carotid bruit heart: RRR with ectopy and 3/6 systolic murmur at the RUSB Lungs: clear bilaterally Abdomen: soft, distended, tympanic, mildly tender Extremities: no edema Assessment/Plan Assessment/Plan * This patient has a bioprosthetic aortic valve and is in a stable sinus rhythm. Chronic anticoagulation is not needed. Otherwise this patient may continue on his usual cardiac medications. Continue telemetry? No
[2016-03-05 23:13] VITALS: BP 130/78
--- NOTE | 2016-03-06 05:09 | Discharge Summary ---
Visit Information Visit Dates Admission Date: 03/04/16 Discharge Date: 03/07/16 Hospital Course Course Attending Physician: EVE ALVARES MD Primary Care Physician: RASHI CHRISTINE,LAURA Muñoz Consulting Request: Consulting Specialty: General Surgery Hospital Course: Patient is 65 year old [place] male with past medical history significant for recurrent small bowel obstruction lasting 2013, CAD status post stent placement in 2007, CABG and mitral valve replacement in November 2015 at [facility] with bioprosthetic valve, hypertension and hyperlipidemia came to chief complaint of abdominal pain, nausea and vomiting for 3 to 4 days that is getting worse since yesterday. Vitals on admission were temperature 96.5, pulse 79, respiratory rate 18, blood pressure 133/72 and patient is saturating 95% on room air. Labs are significant for WBC count 8.7, hemoglobin 14.0, hematocrit 43, platelet count 225, INR 2.22, sodium 141, potassium 3.7, BU and [address] abdomen with oral contrast showed dilated fluid-filled proximal small bowel with gradual transition to normal caliber bowel. Hospital course 1. Small bowel obstruction: Patient admitted general medical floor, kept nothing by mouth, with placement of NG tube/intermittent suction. Surgical consultation was obtained who agreed with the above management. Repeat abdominal x-ray was obtained which showed resolution of obstruction. Stool cultures were sent given his recurrent episodes of diarrhea prior to admission. C. difficile cultures and negative. His electrolytes were monitored and repleted adequately. Patient was started on a clear liquid diet and his diet advanced after treatment in his abdominal pain. He tolerated diet well. 2. History of rheumatic heart disease status post mitral valvuloplasty 40 as ago, recently is on a bioprosthetic mitral valve replacement: Cardiology consultation was obtained for verification of his cardiac medications. Per cardiology recommendation he was continued on Lasix 20 daily, atorvastatin 40 daily, lisinopril 10 daily, carvedilol 3.125 twice a day, aspirin 162 mg daily. 3. Atrial fibrillation: Patient developed atrial fibrillation after recent procedure. He has been in normal sinus rhythm for a while. Again as per cardiology recommendation Coumadin was stopped and patient was instructed not to take it anymore upon discharge. 4. CAD/stents/heart failure reduced ejection fraction: Repeat echocardiogram was obtained showed ejection fraction of 50%. He was continued on his cardiac meds 5. Incidental finding of cyst in the left breast: Will need outpatient evaluation with breast ultrasound. Recommended to follow up with Dr. Cloud. Full CODE STATUS Allergies: Coded Allergies: NO KNOWN ALLERGIES (06/24/10) Disposition Summary Disposition Principal Diagnosis: 1. Small bowel obstruction Additional Diagnosis: History of rheumatic heart disease status post mitral valvuloplasty 40 as ago, recently is on a bioprosthetic mitral valve replacement CAD/stents/heart failure reduced ejection fraction Incidental finding of cyst in the left breast Discharge Disposition: home or self care Discharge Instructions General Discharge Information Code Status: Full Code Patient's Diet: Heart healthy diet Patient's Activity: As tlerated Follow-Up Instructions/Appts: 1. Follow up with PCP in a week upon discharge 2. Follow up with Dr. Christine as per your regular appointment 3. Do not take coumadin any more Medications at Discharge Discharge Medications: Stop taking the following medications: Aspirin (Aspirin*) 81 MG TAB.CHEW ORAL DAILY Warfarin Sodium (Coumadin) 1 MG TABLET ORAL Every Day Clopidogrel Bisulfate (Plavix) 75 MG TABLET PASTE DAILY Continue taking these medications: Simvastatin (Simvastatin) 40 MG TAB 40 Milligram ORAL DAILY Comments: NOT GIVEN IN HOSPITAL Carvedilol (Carvedilol) 3.125 MG TABLET 1 Tablet ORAL TWICE DAILY Comments: Last Taken:03/07/16 Time:1030 Lisinopril (Lisinopril) 10 MG TABLET 1 Tablet ORAL DAILY Comments: Last Taken:03/07/16 Time:1030 Pantoprazole Sodium (Protonix) 40 MG TAB 40 Milligram ORAL DAILY Comments: LAST GIVEN 02/12/15 AT 0920 Furosemide (Lasix) 20 MG TAB 1 Tablet ORAL DAILY Comments: NOT GIVEN IN HOSPITAL Start taking the following new medications: Aspirin (Aspirin*) 81 MG TAB.CHEW 162 Milligram ORAL DAILY Days = 30 No Refills Comments: Last Taken:03/07/16 Time:1030 Copies To: RASHI CHRISTINE,LAURA Muñoz
[2016-03-06 06:23] VITALS: BP 120/64
--- NOTE | 2016-03-06 08:12 | PN- Housestaff ---
DOLORES CHRISTINE,LINDA 03/06/16 0812: Subjective Follow-up For: Small bowel obstruction Subjective: Patient today denies complaints. Had 2 episodes of liquid bowel movement yesterday. Ordered on a clear liquid yesterday which she tolerated very well. Reports becomes gassy after he eats which resolves after some time. Review of Systems Constitutional: Reports: see HPI. Objective Last 24 Hrs of Vital Signs/I&O Vital Signs Date Time Temp Pulse Resp B/P Pulse O2 O2 Flow FiO2 Ox Delivery Rate 03/06 0909 75 120/64 03/06 0908 75 120/64 03/06 0623 97.9 75 20 120/64 94 Room Air 03/05 2313 98.5 79 20 130/78 96 Room Air 03/05 2052 148/80 03/05 1525 97.5 77 20 140/70 94 03/05 1044 130/82 03/05 1044 130/82 Intake & Output 03/06 1600 03/06 0800 03/06 0000 Intake Total 120 Output Total Balance 120 Intake, Oral 120 Number 2 Bowel Movements Physical Exam General Appearance: Alert, Oriented X3, Cooperative, No Acute Distress Skin: No Rashes Cardiovascular: Regular Rate, Normal S1, Normal S2, No Murmurs Lungs: Clear to Auscultation Abdomen: Normal Bowel Sounds, Soft, No Tenderness Neurological: Normal Speech Extremities: No Clubbing, No Cyanosis, No Edema Current Medications: Current Medications Sig/Krystal Start time Last Medication Dose Route Stop Time Status Admin Acetaminophen 650 MG Q6P PRN 03/04 1145 AC PO Acetaminophen 1,000 MG BID PRN 03/04 1145 AC IV Aspirin 162 MG DAILY 03/05 1000 AC 03/06 PO 0908 Atorvastatin Calcium 40 MG 1700 03/04 1700 AC 03/05 PO 1743 Carvedilol 3.125 MG BID 03/04 2200 AC 03/06 PO 0908 Furosemide 20 MG DAILY 03/04 1027 AC 03/06 PO 0909 Lisinopril 10 MG DAILY 03/04 1028 AC 03/06 PO 0909 Morphine Sulfate 4 MG Q4P PRN 03/04 1145 AC 03/04 IV 2135 Pantoprazole Sodium 40 MG DAILY 03/04 1134 AC 03/06 IV 0908 Sodium Chloride 1,000 ML Q13H 03/04 2130 DC 03/04 IV 03/05 1029 2144 Last 24 Hrs of Lab/Armani Results Last 24 Hrs of Labs/Mics: Microbiology 03/05 3477 STOOL: Clostridium difficile Toxin A & B - COLB Assessment/Plan Assessment: 65 year old male with past medical history significant for recurrent small bowel obstruction lasting 2013, CAD status post stent placement in 2007, CABG and mitral valve replacement in November 2015 at [facility] with bioprosthetic valve, hypertension and hyperlipidemia came to chief complaint of abdominal pain, nausea and vomiting for 3 to 4 days that is getting worse since yesterday. CAT scan showed multiple dilated fluid-filled loops of the small bowel throughout the abdomen. Patient appears comfortable today. Started on a clear liquid diet yesterday which he tolerated well 1. Recurrent Small bowel obstruction: -We will advance his diet to full liquid -No evidence of infection hence off of antibiotics. afebrile since admission. Cultures pending. Unfortunately C. difficile was not sent in spite of patient having 2 bowel movements -We'll keep him admission and potassium more than 4 and admission more than 2 3. CAD/stents/heart failure reduced ejection fraction: Patient appears to be stable -Cardiology following the patient next in-we'll continue his cardiac meds occluding beta blockers,, aspirin, statins. - Echocardiogram shows ejection fraction of 50% 3. History of atrial fibrillation currently in sinus rhythm for a while: -Per cardiology recommendation will discontinue Coumadin 4. History of rheumatic heart disease status post mitral valvuloplasty 40 as ago, recently is on a bioprosthetic valve 5. Acute drop in H&H: - Could be hemodilution as all his saline test droped - Patient remained asymptomatic, no need for transfusion and to monitor 6. Incidental finding of cyst in the left breast: - Will need outpatient evaluation with breast ultrasound - She follows Dr. Cloud. Will discuss with her and recommend for outpatient follow-up Full CODE STATUS Nothing by mouth DVT prophylaxis with Lovenox Problem List: 1. Small bowel obstruction Pain Ratin Pain Location: Abdomen Pain Goal: Remain pain free Pain Plan: As per medication Tomorrow's Labs & Rationales: Not needed Consulting Request: Consulting Specialty: General Surgery DIA CHRISTINE,EVE 03/06/16 1301: Attending MD Review Statement Attending Statement Attending MD Statement: examined this patient, discuss w/resident/PA/COMPLEX CARE NURSE, agreed w/resident/PA/COMPLEX CARE NURSE, reviewed EMR data (avail), discussed with nursing, discussed with case mgmt, reviewed images, amended to note Attending Assessment/Plan: Patient seen and examined, overall feeling better. Denies any abdominal pain. Patient was tolerating clears very well. No further nausea or vomiting. Patient did have a bowel movement. Vital Signs Date Time Temp Pulse Resp B/P Pulse O2 O2 Flow FiO2 Ox Delivery Rate 03/06 0909 75 120/64 03/06 0908 75 120/64 03/06 0623 97.9 75 20 120/64 94 Room Air 03/05 2313 98.5 79 20 130/78 96 Room Air 03/05 2051 148/80 03/05 1525 97.5 77 20 140/70 94 on exam; aox3, nad. cv; s1,s2, rrr, + systolic murmur. resp; clear. abd; soft, nt, bs+ ext; no edema. no labs today. A/P; 65 y/o M with pmh sig for ch systolic CHF, hypertension, hyperlipidemia, myocardial infarction, rheumatic fever history of cardiac cath, recent MVR as well as CABG, history of SBO admitted with abdominal pain, nausea and vomiting secondary to partial small bowel obstruction. Overall improving. Tolerated clears well. Will advance the diet to full liquids and if continues to tolerate, will advanced to regular solid diet. Echocardiogram results are pending. Will follow. As mentioned, Coumadin was stopped as recommended by cardiology as patient has remained in sinus rhythm for a while. He only had transient A. fib after his open-heart surgery. Continue other current medications. Patient was encouraged to ambulate. DVT prophylaxis: Lovenox.
[2016-03-06] MEDS ORDERED: ASPIRIN81 M4 PO (13:44)
--- NOTE | 2016-03-06 13:45 | Patient Discharge Instructions ---
Discharge Instructions General Discharge Information You were seen/treated for: Small bowel obstruction Special Instructions: 1. Follow up with PCP in a week upon discharge 2. Follow up with Dr. Christine as per your regular appointment 3. Do not take coumadin any more Diet Recommended Diet: Heart Healthy Activity Activity Self Limited: Yes Acute Coronary Syndrome Inclusion Criteria At DC or during hospital stay patient has or had the following: ACS DIAGNOSIS No Discharge Core Measures Meds if any: Prescribed or Continued at Discharge Meds if any: NOT Prescribed or Continued at Discharge Congestive Heart Failure Inclusion Criteria At DC or during hospital stay patient has or had the following: CHF DIAGNOSIS No Discharge Core Measures Meds if any: Prescribed or Continued at Discharge Meds if any: NOT Prescribed or Continued at Discharge Cerebrovascular accident Inclusion Criteria At DC or during hospital stay patient has or had the following: CVA/TIA Diagnosis No Discharge Core Measures Meds if any: Prescribed or Continued at Discharge Meds if any: NOT Prescribed or Continued at Discharge Venous thromboembolism Inclusion Criteria VTE Diagnosis No VTE Type NONE VTE Confirmed by (Test) NONE Discharge Core Measures - Per Current guidelines, there needs to be overlap - treatment for the first 5 days of Warfarin therapy. - If discharged on Warfarin prior to 5 days of - overlap therapy, the patient will need to be - assessed for post discharge needs including - *Post discharge parental anticoagulation - *Warfarin and/or parental anticoagulation education - *Follow up date to check INR post discharge At least 5 days overlap therapy as Inpatient No Meds if any: Prescribed or Continued at Discharge Note: Overlap Therapy is Warfarin and Anticoagulant Meds if any: NOT Prescribed or Continued at Discharge
[2016-03-06 13:48] VITALS: BP 130/60
--- NOTE | 2016-03-06 20:04 | PN- Cardiology ---
Subjective Subjective: * Patient is eating clear liquids and keeping medications down. * No abdominal discomfort, chest discomfort or shortness of breath. * BP and heart rate are well controlled Objective Vital Signs and I&Os Vital Signs Date Time Temp Pulse Resp B/P Pulse O2 O2 Flow FiO2 Ox Delivery Rate 03/06 1348 97.5 69 20 130/60 97 Room Air 03/06 0909 75 120/64 03/06 0908 75 120/64 03/06 0623 97.9 75 20 120/64 94 Room Air 03/05 2313 98.5 79 20 130/78 96 Room Air 03/05 205 148/80 Intake & Output 03/06 1600 03/06 0800 03/06 0000 03/05 1600 03/05 0800 03/05 0000 Intake Total 720 120 300 690 Output Total 250 375 Balance 720 120 300 -250 315 Intake, IV 450 Intake, Oral 720 120 300 240 Number 1 2 1 Bowel Movements Output, 100 Gastric Drainage Output, Urine 150 375 Physical Exam: General: WD/ obese male in NAD; alert and oriented x3 heart: RRR with ectopy and 3/6 systolic murmur at the RUSB Lungs: clear bilaterally Extremities: no edema Assessment/Plan Assessment/Plan * This patient has a bioprosthetic aortic valve and is in a stable sinus rhythm. Chronic anticoagulation is not needed. Otherwise this patient may continue on his usual cardiac medications. * Patient is hemodynamically stable on current medications. Continue telemetry? No
--- NOTE | 2016-03-06 21:33 | NUR ---
PT TOLERATED HHD FOR DINNER, DENIES PAIN DENIES NAUSEA, PT STATED BM TONIGHT, "NOT LOOSE", +FLATUS, +BS. WILL CONTINUE TO MONITOR
[2016-03-06 22:36] VITALS: BP 136/70
[2016-03-07 06:34] VITALS: BP 120/80
--- NOTE | 2016-03-07 09:15 | PN- Housestaff ---
DOLORES CHRISTINE,LINDA 03/07/16 0915: Subjective Follow-up For: Small bowel obstruction Subjective: Patient today appears comfortable. Tolerated his regular diet overnight. Had one bowel movement semi fromed Denies abdominal pain, nausea, vomiting Review of Systems Constitutional: Reports: see HPI. Objective Last 24 Hrs of Vital Signs/I&O Vital Signs Date Time Temp Pulse Resp B/P Pulse O2 O2 Flow FiO2 Ox Delivery Rate 03/07 1038 120/80 03/07 1038 120/80 03/07 0634 97.4 72 20 120/80 95 Room Air 03/06 2236 97.9 71 20 136/70 95 Room Air Intake & Output 03/07 1600 03/07 0800 03/07 0000 Intake Total 0 700 Output Total Balance 0 700 Intake, IV 0 Intake, Oral 0 700 Number 0 1 Bowel Movements Physical Exam General Appearance: Alert, Oriented X3, Cooperative, No Acute Distress Skin: No Rashes Cardiovascular: Regular Rate, Normal S1, Normal S2, No Murmurs Lungs: Clear to Auscultation Abdomen: Normal Bowel Sounds, Soft, No Tenderness Neurological: Normal Speech, Strength at 5/5 X4 Ext Extremities: No Clubbing, No Cyanosis, No Edema Current Medications: Current Medications Sig/Krystal Start time Last Medication Dose Route Stop Time Status Admin Acetaminophen 650 MG Q6P PRN 03/04 1145 DCD PO Acetaminophen 1,000 MG BID PRN 03/04 1145 DCD IV Aspirin 162 MG DAILY 03/05 1000 DCD 03/07 PO 1038 Atorvastatin Calcium 40 MG 1700 03/04 1700 DCD 03/06 PO 1559 Carvedilol 3.125 MG BID 03/04 2200 DCD 03/07 PO 1038 Enoxaparin Sodium 40 MG DAILY 03/06 1000 DCD 03/07 SC 1037 Furosemide 20 MG DAILY 03/04 1027 DCD 03/07 PO 1039 Lisinopril 10 MG DAILY 03/04 1028 DCD 03/07 PO 1038 Morphine Sulfate 4 MG Q4P PRN 03/04 1145 DCD 03/04 IV 2135 Pantoprazole Sodium 40 MG DAILY 03/04 1134 DCD 03/07 IV 1039 Assessment/Plan Assessment: 65 year old male with past medical history significant for recurrent small bowel obstruction lasting 2013, CAD status post stent placement in 2007, CABG and mitral valve replacement in November 2015 at [facility] with bioprosthetic valve, hypertension and hyperlipidemia came to chief complaint of abdominal pain, nausea and vomiting for 3 to 4 days that is getting worse since yesterday. CAT scan showed multiple dilated fluid-filled loops of the small bowel throughout the abdomen. Patient appears comfortable today. Started on a regular diet tolerated well 1. Recurrent Small bowel obstruction: -Patient tolerated diet well -No evidence of infection hence off of antibiotics. afebrile since admission. Cultures pending. - C. difficile negative, cultures negative - Plan to discharge patient. 3. CAD/stents/heart failure reduced ejection fraction: Patient appears to be stable - Cardiology following the patient next in-we'll continue his cardiac meds occluding beta blockers,, aspirin, statins. - Discussed with cardiology Coumadin and plavix can be held. Patient informed - Echociogram shows ejection fraction of 50% 3. History of atrial fibrillation currently in sinus rhythm for a while: -Per cardiology recommendation will discontinue Coumadin 4. History of rheumatic heart disease status post mitral valvuloplasty 40 as ago, recently is on a bioprosthetic valve 5. Acute drop in H&H: - Could be hemodilution as all his saline test droped - Patient remained asymptomatic, no need for transfusion and to monitor 6. Incidental finding of cyst in the left breast: - Will need outpatient evaluation with breast ultrasound - Recommended to follow up with Dr. Cloud. Will discuss with her and recommend for outpatient follow-up Full CODE STATUS Nothing by mouth DVT prophylaxis with Lovenox Problem List: 1. Small bowel obstruction Pain Ratin Pain Location: No pain Pain Goal: Remain pain free Pain Plan: Did not need it Tomorrow's Labs & Rationales: To be discharged today Consulting Request: Consulting Specialty: General Surgery EVE ALVARES MD 03/07/16 1159: Attending MD Review Statement Attending Statement Attending MD Statement: examined this patient, discuss w/resident/PA/COMMERCIAL OCEAN CLAMMER, agreed w/resident/PA/COMMERCIAL OCEAN CLAMMER, reviewed EMR data (avail), discussed with nursing, discussed with case mgmt, reviewed images, amended to note Attending Assessment/Plan: Patient seen and examined, feeling much better. Able to tolerate regular solid diet. Denies any abdominal pain, nausea or vomiting. Had a bowel movement which was not loose. His abdominal exam is benign. Echocardiogram results reviewed. Patient is medically stable for discharge home today. He will follow -up with Dr. Cloud, Dr. Christine as an outpatient. He will be continued on his home medications.
[2016-03-07 10:38] VITALS: BP 120/80
== END 2016-03-07 12:38 | DRG 247 ==
LOC: ENRESERVDT → ENRESERVTM → ERH 22:01 → ENPENDDIS 03-04 09:22 → ERHI 03-04 09:22 → 2NA 03-04 09:22 → ERHI 03-04 11:33 → 2NA 03-04 12:59
PROVIDERS: Emergency Medicine; Internal Medicine; ADMIT Internal Medicine
DX: K56.60 Unspecified intestinal obstruction (principal); I11.0 Hypertensive heart disease with heart failure; I50.22 Chronic systolic (congestive) heart failure; Z95.1 Presence of aortocoronary bypass graft; Z95.2 Presence of prosthetic heart valve; E78.5 Hyperlipidemia, unspecified
CPT/HCPCS: 2NASP; 74000; 74176; 74177; 81001; 82436; 87045; 93005; 93010; 93306; 96374; 96375; J0131; J1650; J2405; J2550; J3490

== ENCOUNTER 2017-03-30 18:42 | Inpatient (IN) | payer OTHER ==
[~2017-03-30] VITALS: Ht 175.3 cm; Wt 89.8 kg
[~2017-03-30 18:42] MED LIST changes: +AMIODARONE HCL200 M1 PO; +ATORVASTATIN CA40 M1 PO; +COREG3.125 MG PO; +COUMADIN1 M1 PO; +FUROSEMIDE20 M1 PO; +LEVSIN0.125 M1 PO; +LISINOPRIL40 M1 PO; +MOBIC15 M1 PO; +PANTOPRAZOLE SO40 M1 PO; +PLAVIX75 M1 PAS; +ZOFRAN ODT4 M1 SL
[2017-03-30 19:17] LABS: ABSOLUTE BASOPHIL COUNT 0 /CUMM (0.0-0.2); ABSOLUTE EOSINOPHIL COUNT 0 /CUMM (0.0-0.7); ABSOLUTE GRANULOCYTE CT 5.3 /CUMM (1.4-6.5); ABSOLUTE MONOCYTE COUNT 0.7 /CUMM (0.10-0.60); BASOPHIL % 0.3 % (0.0-2.0); EOSINOPHIL % 0.6 % (0-5); GRANULOCYTE % 65.8 % (42.2-75.2); MEAN CORPUSCULAR HGB 26.7 PG (27.0-31.0); MEAN CORPUSCULAR HGB CONC 32.6 G/DL (33.0-37.0); MEAN CORPUSCULAR VOLUME 81.8 FL (80.0-94.0); PLATELET COUNT 221 /CUMM (130-400); RED BLOOD CELL CT 5.87 /CUMM (4.70-6.10)
--- NOTE | 2017-03-30 19:19 | ED GI/GU/ABDOMINAL COMPLAINT ---
History of Present Illness General Chief Complaint: Abdominal Pain/Flank Pain Stated Complaint: ABD PAIN Source: patient, family, old records Exam Limitations: no limitations Vital Signs & Intake/Output Vital Signs & Intake/Output Vital Signs Date Time Temp Pulse Resp B/P B/P Pulse O2 O2 Flow FiO2 Mean Ox Delivery Rate 03/30 2228 98.8 105 18 129/77 96 Room Air 03/30 2129 98.1 107 18 159/100 97 Room Air 03/30 1850 98.5 112 18 141/97 98 Room Air Allergies Coded Allergies: NO KNOWN ALLERGIES (06/24/10) Reconcile Medications Aspirin (Aspirin*) 81 MG TAB.CHEW 162 MG PO DAILY CAD Atorvastatin Calcium 40 MG TABLET 1 TAB PO DAILY CHOLESTEROL (Reported) Carvedilol 3.125 MG TABLET 1 TAB PO BID HEART HEALTH (Reported) Furosemide 20 MG TABLET 1 TAB PO DAILY DIURETIC (Reported) Hyoscyamine (Levsin) 0.125 MG TABLET 1 TAB PO Q4 PRN cramping Lisinopril 40 MG TABLET 1 TAB PO DAILY BP (Reported) Meloxicam (Mobic) 15 MG TABLET 1 TAB PO DAILY PRN pain Ondansetron (Zofran Odt) 4 MG TAB.RAPDIS 1 TAB SL TID PRN nausea Pantoprazole Sodium 40 MG TABLET.DR 1 TAB PO DAILY GI (Reported) Triage Note: 66 TO MALE TO TRIAGE C/O ABD PAIN AND NV SINCE YESTERDAY. DENIES CHEST PAIN. DENIES URINARY S/S. Triage Nurses Notes Reviewed? yes Onset: Gradual Duration: day(s): Timing: recent history Quality/Severity: moderate HPI: 66yo male with hx of recurrent SBO presents to ED complaining of periumbilical abdominal pain. Abdominal pain described as 8/10, similar to previous small bowel obstructions. Patient also reported nausea and vomiting, he is not tolerating PO since yesterday. Yesterday patient had diarrhea which has resolved, no BM today however patient has been passing flatus. Patient has no history of surgeries on her abdomen. The patient denies fevers, chills, chest pain, dyspnea, urinary symptoms. (Cecy WALDEN,Kathleen Nugent) Past History Travel History Traveled to [place] past 21 day No Medical History Any Pertinent Medical History? see below for history Neurological: NONE EENT: NONE Cardiovascular: CHF, hypertension, hyperlipidemia, myocardial infarction, rheumatic fever with consequent mitral stenosis. Valvuloplasty in [place] 40 years ago. stenosis surgical mitral valvuloplasty performed in [place] over 40 years ago. supraventricular arrhythmia Respiratory: NONE Gastrointestinal: GERD, SBO Hepatic: NONE Renal: NONE Musculoskeletal: NONE Psychiatric: NONE Endocrine: NONE Blood Disorders: NONE Cancer(s): NONE TEACHER INDUSTRIAL ARTS/Reproductive: NONE History of MRSA: No History of VRE: No History of CDIFF: No Surgical History Surgical History: mitral valve replacement with #25 Magna Ease pericardial valve bypass graft to LAD at the time of valve replacement Psychosocial History Who do you live with Family Services at Home None What is your primary language Mohawk Tobacco Use: Never used Family History Family History, If Any: FATHER (OR at age 63). MOTHER (CAD). Hx Contributory? No (Kathleen Shirley) Review of Systems Review of Systems Constitutional: Reports: no symptoms. EENTM: Reports: no symptoms. Respiratory: Reports: no symptoms. Cardiovascular: Reports: no symptoms. GI: Reports: see HPI. Genitourinary: Reports: no symptoms. Musculoskeletal: Reports: no symptoms. Skin: Reports: no symptoms. Neurological/Psychological: Reports: no symptoms. Hematologic/Endocrine: Reports: no symptoms. Immunologic/Allergic: Reports: no symptoms. All Other Systems: Reviewed and Negative (Kathleen Shirley) Physical Exam Physical Exam General Appearance: well developed/nourished, no apparent distress, alert, awake Head: atraumatic, normal appearance Eyes: Bilateral: normal appearance. Ears, Nose, Throat, Mouth: hearing grossly normal Neck: normal inspection, supple, full range of motion Respiratory: normal breath sounds, no respiratory distress, lungs clear Cardiovascular: tachycardia Gastrointestinal: normal bowel sounds, distention, periumbilical tenderness Back: normal inspection, normal range of motion Extremities: normal range of motion Neurologic/Psych: awake, alert, oriented x 3 Skin: intact, normal color, warm/dry Core Measures ACS in differential dx? No Sepsis Present: No Sepsis Focused Exam Completed? No (Kathleen Shirley) Progress Differential Diagnosis: appendicitis, bowel obstruction, diverticulitis, gastritis, hernia, inflamm bowel dis Plan of Care: Orders Procedure Date/time Status Nothing by Mouth 03/31 B Active CBC WITHOUT DIFFERENTIAL 03/31 0600 Active BASIC ELECTROLYTES PLUS BUN&CR 03/31 06 Active Pathway - chart 02/19 2311 Active Patient Data 03/30 2153 Active Code Status 03/30 2153 Active Intake & Output 03/30 2138 Active TROPONIN LEVEL 03/30 1900 Complete EKG 03/30 1854 Active LIPASE 03/30 1849 Complete COMPREHENSIVE METABOLIC PANEL 03/30 1849 Complete CBC WITHOUT DIFFERENTIAL 03/30 1849 Complete AMYLASE 03/[address] in observation 03/30 UNK Active VTE Mechanical Prophylaxis 03/30 UNK Active Vital Signs 03/30 UNK Active NGT 03/30 UNK Active Intake & Output 03/30 UNK Active Activity/Ambulation 03/30 UNK Active Current Medications Sig/Krystal Start time Last Medication Dose Stop Time Status Admin Carvedilol 3.125 MG BID 03/31 1000 AC (Coreg) Lisinopril 40 MG BID 03/31 1000 AC (Prinivil) Heparin Sodium 5,000 UNIT Q8 03/31 0600 AC (Porcine) Morphine Sulfate 2 MG Q2P PRN 03/30 2329 AC (Morphine) Pantoprazole Sodium 40 MG DAILY 03/30 2329 AC (Protonix) Dextrose/Sodium 1,000 ML .Q8H 03/30 231 AC Chloride (D5-Normal Saline) Ondansetron HCl 4 MG Q6-PRN PRN 03/30 2314 AC (Zofran) Promethazine HCl 25 MG Q6-PRN PRN 03/30 2314 AC (Phenergen) 04/06 2313 Enalaprilat 1.25 MG ONCE ONE 03/30 2144 CAN (Vasotec I.V.. 2ML 03/30 2145 Inj.(2.5MG/2ML)) Ondansetron HCl 4 MG ONCE ONE 03/30 1899 CAN (Zofran) 03/30 1900 Laboratory Tests 03/30/171900: Anion Gap 16, Estimated GFR > 60, BUN/Creatinine Ratio 15.8, Glucose 123 H, Calcium 9.4, Total Bilirubin 1.2, AST 23, ALT 26, Alkaline Phosphatase 102, Troponin I 0.02, Total Protein 8.1, Albumin 4.4, Globulin 3.7, Albumin/Globulin Ratio 1.2, Amylase 106, Lipase 18 L, CBC w Diff NO MAN DIFF REQ, RBC 5.87, MCV 81.8, MCH 26.7 L, MCHC 32.6 L, RDW 15.0 H, MPV 8.0, Gran % 65.8, Lymphocytes % 24.4, Monocytes % 8.9, Eosinophils % 0.6, Basophils % 0.3, Absolute Granulocytes 5.3, Absolute Lymphocytes 2.0, Absolute Monocytes 0.7 H, Absolute Eosinophils 0, Absolute Basophils 0 03/30/17 1855: Troponin I Cancelled Spoke with [facility] regarding this patient. High-grade small bowel obstruction present. Radiologist reviewed old CT scans and states CT images similar to appearance in February 2016. Patient had CT scan in November 2016 without obstruction. Now recurrent obstruction today. Spoke with Dr. Perez regarding this patient. Surgical PA to evaluate patient here in the ED. Per general surgery Plan for patient to be observation for general surgery consult, NG tube, IV fluids. Diagnostic Imaging: Viewed by Me: Radiology Read. Discussed w/RAD: Radiology Read. Radiology Impression: PATIENT: YAMEL BLOOM PRESENT AGE : 66 PATIENT ACCOUNT NO: [id number] : 48 LOCATION: [facility] ORDERING PHYSICIAN: Kathleen WALDEN SERVICE DATE: 03/30/17 EXAM TYPE: CAT - CT ABD & PELVIS W IV CONTRAST EXAMINATION: CT ABDOMEN AND PELVIS WITH CONTRAST CLINICAL INFORMATION: Abdominal pain. Nausea vomiting and diarrhea. COMPARISON: CT scan abdomen pelvis 12/04/2016 TECHNIQUE: Multidetector volumetric imaging was performed of the abdomen and pelvis following IV administration of 95 mL of Optiray 320 intravenous contrast. Sagittal and coronal reformatted images were obtained on the technologist's workstation. DLP: 593.33 mGy-cm FINDINGS: LUNG BASES: The visualized lung bases are unremarkable. There is a subcutaneous cyst in the left breast with density measurement 11 Hounsfield units. Measures 4 x 3 cm Status post median sternotomy. Status post mitral valve repair. LIVER, GALLBLADDER, AND BILIARY TREE: The liver is normal in size, shape, and attenuation. No focal hepatic lesion or biliary ductal dilatation is present. The gallbladder is unremarkable with no evidence of radiopaque gallstones, gallbladder wall thickening, or obvious pericholecystic inflammatory changes. PANCREAS: Pancreas is atrophic. No inflammation. No pancreatic mass or pancreatic duct dilatation. SPLEEN: Unremarkable. ADRENAL GLANDS: Unremarkable. KIDNEYS AND URETERS: The kidneys are normal in size, shape, and attenuation. Cortical cyst lower pole of the left kidney measuring 1.3 cm. No hydronephrosis, hydroureter, or calculi seen. No perinephric stranding. BLADDER: Unremarkable. GASTROINTESTINAL TRACT: Is a high-grade small bowel obstruction. Transition point in the low central pelvis, coronal image 58. The distal small bowel is decompressed. This is similar to the CAT scan of 03/04/2016. No bowel wall edema or bowel thickening. No air in the bowel wall. No abdominal ascites. No radiographic evidence for ischemia. The appendix is normal. Scattered stool and bowel gas in the colon. The colon is decompressed. The appendix is normal. ABDOMINAL WALL: Bilateral fat-containing inguinal hernias measuring about 3 cm transverse. LYMPH NODES: Normal. VASCULAR: Unremarkable. PELVIC VISCERA: Prostate measures 5.5 cm transverse. OSSEOUS STRUCTURES: Degenerative spondylosis of spine with multilevel endplate spurring and facet joint arthrosis. IMPRESSION: High-grade small bowel obstruction. DICTATED BY: Joshua Paige MD DATE/TIME DICTATED:03/30/172032 WASTEWATER ANALYST LAB ANALYST:NEDRA DATE/TIME TRANSCRIBED:03/30/172032 CONFIDENTIAL, DO NOT COPY WITHOUT APPROPRIATE AUTHORIZATION. <Electronically signed in Other Vendor System> SIGNED BY: Joshua Paige MD 03/30/172044 Initial ED EKG: SINUS TACHYCARDIA, NONSPECIFIC ST CHANGES Prior EKG: unchanged (03/03/16) (Kathleen Shirley) Departure Departure Disposition: STILL A PATIENT Condition: Stable Clinical Impression Primary Impression: Small bowel obstruction Referrals: Ai CHRISTINE,Blanca Muñoz (PCP/Family) Departure Forms: Customer Survey General Discharge Information Observation Note Spoke With: Chris CHRISTINE,Jourdan Roth Place Patient In: Non-ED OBS Care Area Rationale for Observation: My rational for observation is as follows [recurrent small bowel obstruction requiring Gen. surgery consults, NG tube, IV fluids, observation, premature discharge would be medically unsafe]. (Kathleen Shirley) PA/MANAGER HYDRAULIC Co-Sign Statement Statement: ED Attending supervision documentation- [x] I saw and evaluated the patient. I have also reviewed all the pertinent lab results and diagnostic results. I agree with the findings and the plan of care as documented in the PA's/MANAGER HYDRAULIC's documentation. 03/30/17, 21:45... pt with sbo, merits admission. [] I have reviewed the ED Record and agree with the PA's/MANAGER HYDRAULIC's documentation. [] Additions or exceptions (if any) to the PAs/MANAGER HYDRAULIC's note and plan are summarized below: [] (Demetrius CHRISTINE,Alexandr Green)
--- NOTE | 2017-03-30 20:45 | CT SCAN REPORT ---
EXAMINATION: CT ABDOMEN AND PELVIS WITH CONTRAST CLINICAL INFORMATION: Abdominal pain. Nausea vomiting and diarrhea. COMPARISON: CT scan abdomen pelvis 12/04/2016 TECHNIQUE: Multidetector volumetric imaging was performed of the abdomen and pelvis following IV administration of 95 mL of Optiray 320 intravenous contrast. Sagittal and coronal reformatted images were obtained on the technologist's workstation. DLP: 593.33 mGy-cm FINDINGS: LUNG BASES: The visualized lung bases are unremarkable. There is a subcutaneous cyst in the left breast with density measurement 11 Hounsfield units. Measures 4 x 3 cm Status post median sternotomy. Status post mitral valve repair. LIVER, GALLBLADDER, AND BILIARY TREE: The liver is normal in size, shape, and attenuation. No focal hepatic lesion or biliary ductal dilatation is present. The gallbladder is unremarkable with no evidence of radiopaque gallstones, gallbladder wall thickening, or obvious pericholecystic inflammatory changes. PANCREAS: Pancreas is atrophic. No inflammation. No pancreatic mass or pancreatic duct dilatation. SPLEEN: Unremarkable. ADRENAL GLANDS: Unremarkable. KIDNEYS AND URETERS: The kidneys are normal in size, shape, and attenuation. Cortical cyst lower pole of the left kidney measuring 1.3 cm. No hydronephrosis, hydroureter, or calculi seen. No perinephric stranding. BLADDER: Unremarkable. GASTROINTESTINAL TRACT: Is a high-grade small bowel obstruction. Transition point in the low central pelvis, coronal image 58. The distal small bowel is decompressed. This is similar to the CAT scan of 03/04/2016. No bowel wall edema or bowel thickening. No air in the bowel wall. No abdominal ascites. No radiographic evidence for ischemia. The appendix is normal. Scattered stool and bowel gas in the colon. The colon is decompressed. The appendix is normal. ABDOMINAL WALL: Bilateral fat-containing inguinal hernias measuring about 3 cm transverse. LYMPH NODES: Normal. VASCULAR: Unremarkable. PELVIC VISCERA: Prostate measures 5.5 cm transverse. OSSEOUS STRUCTURES: Degenerative spondylosis of spine with multilevel endplate spurring and facet joint arthrosis. IMPRESSION: High-grade small bowel obstruction.
--- NOTE | 2017-03-30 23:12 | Admission Core Measures ---
Acute Coronary Syndrome (CM) ACS Core Measures Acute Coronary Syndrome Diagnosis No Congestive Heart Failure (NEW) CHF Core Measures Congestive Heart Failure Diagnosis Yes Comment HISTORY Cerebrovascular Accident (NEW) CVA Core Measures CVA/TIA Diagnosis No Venous Thromboembolism VTE Core Mkea (View Protocol) VTE Risk Factors Acute Medical Illness No Mechanical VTE Prophylaxis d/t N/A MechProphylax Ordered No VTE Pharm Prophylaxis d/t NA PharmProphylax ordered Problem List As ranked by this Provider includes Assessment & Plan 1. Small bowel obstruction HOME MEDS Home Med List Aspirin (Aspirin*) 81 MG TAB.CHEW 162 MG PO DAILY CAD Atorvastatin Calcium 40 MG TABLET 1 TAB PO DAILY CHOLESTEROL (Reported) Carvedilol 3.125 MG TABLET 1 TAB PO BID HEART HEALTH (Reported) Furosemide 20 MG TABLET 1 TAB PO DAILY DIURETIC (Reported) Hyoscyamine (Levsin) 0.125 MG TABLET 1 TAB PO Q4 PRN cramping Lisinopril 40 MG TABLET 1 TAB PO DAILY BP (Reported) Meloxicam (Mobic) 15 MG TABLET 1 TAB PO DAILY PRN pain Ondansetron (Zofran Odt) 4 MG TAB.RAPDIS 1 TAB SL TID PRN nausea Pantoprazole Sodium 40 MG TABLET.DR 1 TAB PO DAILY GI (Reported)
--- NOTE | 2017-03-30 23:21 | History & Physical Pre-Op ---
Heidy Mcintyre 03/30/17 9892: General Information and HPI History of Present Illness: 66yoM presents to the emergency room this evening with complaints of abdominal pain worsening over 2 days. He has a history of recurrent small bowel obstructions resolving with conservative measures in the past, and states his pain feels the same as small bowel obstructions he's had in the past. His pain started yesterday. Describes as crampy intermittent pain, sharp at times. He has also been nauseous and vomiting. His last bowel movement was yesterday. He passes flatus this morning though has not passed any gas in approximately 6 hours. His last meal was yesterday at noon. He has no appetite. He feels bloated. Denies fever or chills. Denies chest pain or shortness of breath. Denies sick contacts He has been hospitalized 7 times for small bowel obstructions, most recently in February 2016. He has never had abdominal surgery. He has never had a colonoscopy. He has no gastrointestinal diagnoses other than GERD, and these recurrent small bowel obstructions. Allergies/Medications Allergies: Coded Allergies: NO KNOWN ALLERGIES (06/24/10) Home Med list Aspirin (Aspirin*) 81 MG TAB.CHEW 162 MG PO DAILY CAD Atorvastatin Calcium 40 MG TABLET 1 TAB PO DAILY CHOLESTEROL (Reported) Carvedilol 3.125 MG TABLET 1 TAB PO BID HEART HEALTH (Reported) Furosemide 20 MG TABLET 1 TAB PO DAILY DIURETIC (Reported) Hyoscyamine (Levsin) 0.125 MG TABLET 1 TAB PO Q4 PRN cramping Lisinopril 40 MG TABLET 1 TAB PO DAILY BP (Reported) Meloxicam (Mobic) 15 MG TABLET 1 TAB PO DAILY PRN pain Ondansetron (Zofran Odt) 4 MG TAB.RAPDIS 1 TAB SL TID PRN nausea Pantoprazole Sodium 40 MG TABLET.DR 1 TAB PO DAILY GI (Reported) Past History Medical History Cardiovascular: CAD (sp CABG 2015), CHF, hypertension, hyperlipidemia, myocardial infarction, mitral stenosis (sp MVR), rheumatic fever with consequent mitral stenosis, Valvuloplasty in [place] 40 years ago., 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 MOTHER (CAD). Psychosocial History Where Do You Live? Home Services at Home None Smoking Status: Never Smoked ETOH Use: occasional use Illicit Drug Use: denies illicit drug use Functional Ability ADLs Independent: dressing, eating, toileting, bathing. Ambulation: independent IADLs Independent: shopping, housework, finances, food prep, telephone, transportation , medication admin. Employment History Employment: Employed Profession/Employer: [employer] Exam & Diagnostic Data Last 24 Hrs of Vital Signs/I&O Vital Signs Date Time Temp Pulse Resp B/P B/P Pulse O2 O2 Flow FiO2 Mean Ox Delivery Rate 03/30 2228 98.8 105 18 129/77 96 Room Air 03/30 2129 98.1 107 18 159/100 97 Room Air 03/30 1849 98.5 112 18 141/97 98 Room Air Physical Exam: GEN: NAD CARD: S1S2 Regular, slightly tachy, murmur PULM: CTAB ABD: Distended, tympanic, tender to palpation throughout, no rebound, no guarding, quiet bowel sounds, no masses EXT: calves soft nt, no edema Last 24 Hrs of Labs/Armani: Laboratory Tests 03/30/171900: Anion Gap 16, Estimated GFR > 60, BUN/Creatinine Ratio 15.8, Glucose 123 H, Calcium 9.4, Total Bilirubin 1.2, AST 23, ALT 26, Alkaline Phosphatase 102, Troponin I 0.02, Total Protein 8.1, Albumin 4.4, Globulin 3.7, Albumin/Globulin Ratio 1.2, Amylase 106, Lipase 18 L, CBC w Diff NO MAN DIFF REQ, RBC 5.87, MCV 81.8, MCH 26.7 L, MCHC 32.6 L, RDW 15.0 H, MPV 8.0, Gran % 65.8, Lymphocytes % 24.4, Monocytes % 8.9, Eosinophils % 0.6, Basophils % 0.3, Absolute Granulocytes 5.3, Absolute Lymphocytes 2.0, Absolute Monocytes 0.7 H, Absolute Eosinophils 0, Absolute Basophils 0 03/30/171854: Troponin I Cancelled Diagnostic Data Other Results SERVICE DATE: 03/30/17-1918 EXAM TYPE: CAT - CT ABD & PELVIS W IV CONTRAST Addendum: This critical result was discussed with Kathleen Frazier on 03/30/2017, 8:50 PM and it was ascertained that the content and urgency of the report was understood at the time of direct communication. Addendum Signed by: Joshua Paige MD 03/30/172046 EXAMINATION: CT ABDOMEN AND PELVIS WITH CONTRAST CLINICAL INFORMATION: Abdominal pain. Nausea vomiting and diarrhea. COMPARISON: CT scan abdomen pelvis 12/04/2016 TECHNIQUE: Multidetector volumetric imaging was performed of the abdomen and pelvis following IV administration of 95 mL of Optiray 320 intravenous contrast. Sagittal and coronal reformatted images were obtained on the technologist's workstation. DLP: 593.33 mGy-cm FINDINGS: LUNG BASES: The visualized lung bases are unremarkable. There is a subcutaneous cyst in the left breast with density measurement 11 Hounsfield units. Measures 4 x 3 cm Status post median sternotomy. Status post mitral valve repair. LIVER, GALLBLADDER, AND BILIARY TREE: The liver is normal in size, shape, and attenuation. No focal hepatic lesion or biliary ductal dilatation is present. The gallbladder is unremarkable with no evidence of radiopaque gallstones, gallbladder wall thickening, or obvious pericholecystic inflammatory changes. PANCREAS: Pancreas is atrophic. No inflammation. No pancreatic mass or pancreatic duct dilatation. SPLEEN: Unremarkable. ADRENAL GLANDS: Unremarkable. KIDNEYS AND URETERS: The kidneys are normal in size, shape, and attenuation. Cortical cyst lower pole of the left kidney measuring 1.3 cm. No hydronephrosis, hydroureter, or calculi seen. No perinephric stranding. BLADDER: Unremarkable. GASTROINTESTINAL TRACT: Is a high-grade small bowel obstruction. Transition point in the low central pelvis, coronal image 58. The distal small bowel is decompressed. This is similar to the CAT scan of 03/04/2016. No bowel wall edema or bowel thickening. No air in the bowel wall. No abdominal ascites. No radiographic evidence for ischemia. The appendix is normal. Scattered stool and bowel gas in the colon. The colon is decompressed. The appendix is normal. ABDOMINAL WALL: Bilateral fat-containing inguinal hernias measuring about 3 cm transverse. LYMPH NODES: Normal. VASCULAR: Unremarkable. PELVIC VISCERA: Prostate measures 5.5 cm transverse. OSSEOUS STRUCTURES: Degenerative spondylosis of spine with multilevel endplate spurring and facet joint arthrosis. IMPRESSION: High-grade small bowel obstruction. Assessment/Plan Assessment/Plan: A: 66M with recurrent SBO, high grade, with significant cardiac history P: Treat conservatively for now, may require surgical intervention if no improvement. - NGT inserted in ED, 500+ emesis bright green bilious output. keep to lcws - DVT ppx- alps, hep sq - NPO, IVF - prn low dose pain meds, antiemetics - home meds - OOB, ambulate - am labs - serial abd exams -observation status - will dw attending As Ranked By This Provider Problem List: 1. Small bowel obstruction Chris CHRISTINE,Jourdan Roth 03/31/17 1054: Attending MD Review Statement Attending Statement Attending MD Statement: discuss w/resident/PA/BED BUG EXTERMINATOR, reviewed images
[2017-03-31 00:01] VITALS: BP 132/84
[2017-03-31 06:45] VITALS: BP 144/82
[2017-03-31 07:58] LABS: ABSOLUTE BASOPHIL COUNT 0 /CUMM (0.0-0.2); ABSOLUTE EOSINOPHIL COUNT 0.2 /CUMM (0.0-0.7); ABSOLUTE LYMPH COUNT 1.8 /CUMM (1.2-3.4); ABSOLUTE MONOCYTE COUNT 0.9 /CUMM (0.10-0.60); BASOPHIL % 0.5 % (0.0-2.0); EOSINOPHIL % 2.6 % (0-5); GRANULOCYTE % 51.1 % (42.2-75.2); MEAN CORPUSCULAR HGB 27.2 PG (27.0-31.0); MEAN CORPUSCULAR VOLUME 82.3 FL (80.0-94.0); MEAN PLATELET VOLUME 8.3 FL (7.4-10.4); PLATELET COUNT 172 /CUMM (130-400); RED BLOOD CELL CT 4.97 /CUMM (4.70-6.10); WHITE BLOOD CELL COUNT 5.9 /CUMM (4.8-10.8)
[2017-03-31 08:36] LABS: HEMATOCRIT 40.8 % (42-52)
--- NOTE | 2017-03-31 10:23 | PN- General Surgery ---
See Addendum Subjective Subjective: HD#1 sbo admitted last night currently resting comfortably on side deneis cp, sob, less pain this morning +flatus, no bm Objective Vital Signs and I&Os Vital Signs Date Time Temp Pulse Resp B/P B/P Pulse O2 O2 Flow FiO2 Mean Ox Delivery Rate 03/31 0645 98.1 83 18 144/82 96 03/31 0001 99.0 104 18 132/84 95 03/30 2229 98.8 105 18 129/77 96 Room Air 03/30 2130 98.1 107 18 159/100 97 Room Air 03/30 1850 98.5 112 18 141/97 98 Room Air Intake & Output 03/31 1600 03/31 0800 03/31 0000 03/30 1600 03/30 0800 03/30 0000 Intake Total 1000 Output Total 300 450 Balance 700 -450 Intake, IV 1000 Output, 50 450 Gastric Drainage Output, Urine 250 Patient 198 lb Weight Weight Reported by Patient Measurement Method Physical Exam: cv: rrr lungs; clear abd: softly distended diffusely tender to palp +bs ext: warm, distal cms intact no calf tenderness bilat Assessment/Plan Assessment/Plan surgical stable plan ngt ivf ambulate hep sq/alps f/u am labs will f/u with attending Core Measures Venous Thromboembolism VTE Risk Factors Acute Medical Illness No Mechanical VTE Prophylaxis d/t N/A MechProphylax Ordered No VTE Pharm Prophylaxis d/t NA PharmProphylax ordered
[2017-03-31 14:41] VITALS: BP 140/80
--- NOTE | 2017-03-31 15:53 | RADIOLOGY REPORT ---
EXAMINATION: XR ABDOMEN MULTIPLE VIEWS CLINICAL INDICATION: Small bowel obstruction. Presumptive diagnosis of bowel malfunction. COMPARISON: Selected portions of CT femora 2017 TECHNIQUE: Supine and upright views of the abdomen. FINDINGS: The enteric tube tip projects in the region of the pylorus. There is opaque material in the urinary bladder likely excreted contrast. No suspicious calcifications. There are bridging osteophytes or syndesmophytes. There are gas-filled distended loops of bowel in the central abdomen with possible fold thickening. There is a paucity of colonic gas. There is no definite pneumoperitoneum. Lower sternal wires and a prosthetic cardiac valve are present. IMPRESSION: Abnormal bowel gas pattern. Disproportionate small bowel distention with probable fold thickening. No pneumoperitoneum. Pattern could reflect bowel obstruction. Fold thickening could be related to inflammation, edema or ischemia.
[2017-03-31 21:57] VITALS: BP 170/90
[2017-04-01 06:26] VITALS: BP 140/88
--- NOTE | 2017-04-01 07:40 | PN- General Surgery ---
See Addendum Subjective Subjective: Reports passing some flatus overnight. No bms. "Sore throat" asking for chloraseptic spray. Denies nausea. Ongoing bloating. Objective Vital Signs and I&Os Vital Signs Date Time Temp Pulse Resp B/P B/P Pulse O2 O2 Flow FiO2 Mean Ox Delivery Rate 04/01 625 99.8 97 18 140/88 92 03/31 2157 99.8 105 18 170/90 94 03/31 2131 112 170/90 03/31 2131 112 170/90 03/31 1441 98.8 90 18 140/80 94 Room Air 03/31 1050 76 132/80 Intake & Output 04/01 0800 04/01 0000 03/31 1600 03/31 0800 03/31 0000 03/30 1600 Intake Total 750 1090 1060 1000 Output Total 1080 700 300 450 Balance 750 10 360 700 -450 Intake, IV 750 1010 1000 1000 Intake, Oral 0 0 Intake, Other 80 60 Number 0 Bowel Movements Output, 180 100 50 450 Gastric Drainage Output, Urine 900 600 250 Patient 198 lb 198 lb Weight Weight Reported by Patient Reported by Patient Measurement Method Physical Exam: General - alert & oriented x 3. comfortable. no acute distress. Lungs - clear bilaterally. no w/r/r. Cardiac - s1s2. reg Abdomen - softly distended. bowel sounds appreciated. ng tube re-taped. cannister with bilious drainage. mild tenderness, not localized Extremities - warm bilaterally. no c/c/e. calves soft and nontender b/l. Assessment/Plan Assessment/Plan This 66 year old male with hx cad s/p cabg, mvr, hx chf, htn, gerd, and no previous abdominal surgeries, here with recurrent sbo npo/ngt. may consider clamping trial will decrease iv fluids oob/ambulation hep sc - dvt ppx protonix - gi ppx f/u lytes home meds ordered will d/w Core Measures Venous Thromboembolism VTE Risk Factors Acute Medical Illness No Mechanical VTE Prophylaxis d/t N/A MechProphylax Ordered No VTE Pharm Prophylaxis d/t NA PharmProphylax ordered
[2017-04-01 13:36] VITALS: BP 144/82
[2017-04-01 20:00] VITALS: BP 138/70
[2017-04-01 21:42] VITALS: BP 140/80
[2017-04-02 07:05] VITALS: BP 138/74
--- NOTE | 2017-04-02 07:38 | PN- General Surgery ---
See Addendum Subjective Subjective: PT IN BED, NO COMPLAINTS OF NAUSEA, JUST SORE NOSE AND THROAT FROM NGT SAYS HE HAS BEEN PASSING A LOT OF FLATUS OVERNIGHT AND THIS MORNING, NO BM. NO N/V. VOIDING. AMBULATING Objective Vital Signs and I&Os Vital Signs Date Time Temp Pulse Resp B/P B/P Pulse O2 O2 Flow FiO2 Mean Ox Delivery Rate 04/02 0705 99.0 78 18 138/74 93 04/01 2142 99.7 86 18 140/80 92 Room Air 04/01 1999 99.9 89 20 138/70 94 Room Air 04/01 1950 89 138/70 04/01 1950 89 138/70 04/01 1441 100.5 04/01 1440 100.5 04/01 1347 101.6 04/01 1336 101.6 90 18 144/82 91 Room Air 04/01 0937 80 132/80 Intake & Output 04/02 0800 04/02 0000 04/01 1600 04/01 0800 04/01 0000 03/31 1600 Intake Total 240 920 228 771 5195 1060 Output Total 500 139 650 3908 700 Balance -260 570 60 750 10 360 Intake, IV 810 545 666 6334 1000 Intake, Oral 240 0 0 0 0 Intake, Other 110 60 80 60 Number 0 0 Bowel Movements Output, 100 50 100 180 100 Gastric Drainage Output, Urine 400 300 700 900 600 Patient 198 lb Weight Weight Reported by Patient Measurement Method Physical Exam: GEN-NAD RESP-CLEAR CARDIO-RRR ABD- ND, +BS, SOFT, NT Current Medications: Current Medications Sig/Krystal Start time Last Medication Dose Route Stop Time Status Admin Acetaminophen 1,000 MG ONCE ONE 04/01 1345 DC 04/01 N/A 1 UNIT IV 04/01 1359 1347 Carvedilol 3.125 MG BID 03/31 1000 AC 04/01 PO 1950 Dextrose/Sodium 1,000 ML .Q10H 03/30 2315 AC 04/02 Chloride IV 0524 Heparin Sodium 5,000 UNIT Q8 03/31 0600 AC 04/02 (Porcine) SC 0524 Lisinopril 40 MG BID 03/31 1000 AC 04/01 PO 1950 Morphine Sulfate 2 MG Q2P PRN 03/30 2330 AC 04/01 IV 2000 Ondansetron HCl 4 MG Q6-PRN PRN 03/30 2315 AC IV Pantoprazole Sodium 40 MG DAILY 03/30 2330 AC 04/01 IV 0937 Phenol 2 SPRAY Q2P PRN 04/01 0745 AC 04/01 EXT 1950 Promethazine HCl 25 MG Q6-PRN PRN 03/30 2315 AC IV 04/06 2314 Results Last 48 Hours of Labs: Laboratory Tests 04/01 0625 Chemistry Sodium (137 - 145 mmol/L) 143 Potassium (3.5 - 5.1 mmol/L) 3.6 Chloride (98 - 107 mmol/L) 106 Carbon Dioxide (22 - 30 mmol/L) 27 Anion Gap (5 - 16) 10 BUN (9 - 20 mg/dL) 11 Creatinine (0.7 - 1.2 mg/dL) 0.8 Estimated GFR (>60 ml/min) > 60 BUN/Creatinine Ratio (7 - 25 %) 13.8 Assessment/Plan Assessment/Plan 66YO M WITH SBO, APPEARS TO BE RESOLVING WITH CONSERVATIVE MANAGEMENT WITH BOWEL REST, NGT. STABLE WILL GET ABD X-RAY THIS AM, IF SBO RESOLVED WILL LIKELY PULL NGT AND TRY CLEAR LIQUIDS NPO FOR NOW, CONT HYDRATION WITH IVF ENCOURAGE AMBULATION REGUALR HOME MEDICATIONS DVT PPX-ALPS AND HEPARIN WILL DISCUSS WITH DR ESTRELLA Core Measures Venous Thromboembolism VTE Risk Factors Acute Medical Illness No Mechanical VTE Prophylaxis d/t N/A MechProphylax Ordered No VTE Pharm Prophylaxis d/t NA PharmProphylax ordered
--- NOTE | 2017-04-02 11:48 | RADIOLOGY REPORT ---
EXAMINATION: XR ABDOMEN MULTIPLE VIEWS CLINICAL INDICATION: Resolving small bowel obstruction with abdominal distention, resolved nausea. COMPARISON: 03/31/2017. TECHNIQUE: 2 views of the abdomen. FINDINGS: There is interval resolution of the dilated gas-filled small bowel loops, no current remaining dilated small bowel loops are identified. Gas and fecal material is present throughout the colon. An NG tube remains present, the side port is at the gastroesophageal junction. No soft tissue calcifications are noted. There is partial visualization of the median sternotomy wires and cardiac valve prosthesis IMPRESSION: No evidence of remaining small bowel obstruction at this time. Of note, the NG tube has the side port very close to or at the level of the gastroesophageal junction, this should be advanced.
[2017-04-02 13:51] VITALS: BP 124/60
--- NOTE | 2017-04-02 15:52 | Patient Discharge Instructions ---
Discharge Instructions General Discharge Information You were seen/treated for: Small bowel obstruction You had these procedures: None Watch for these problems: Worsening abdominal pain, nausea, vomiting, fever, abdominal distention Special Instructions: Call for follow-up appointment in 1-2 weeks Diet Continue normal diet: No Recommended Diet: Low Residue Activity Full Activity/No Limits: Yes Acute Coronary Syndrome Inclusion Criteria At DC or during hospital stay patient has or had the following: ACS DIAGNOSIS No Discharge Core Measures Meds if any: Prescribed or Continued at Discharge Meds if any: NOT Prescribed or Continued at Discharge Congestive Heart Failure Inclusion Criteria At DC or during hospital stay patient has or had the following: CHF DIAGNOSIS No Discharge Core Measures Meds if any: Prescribed or Continued at Discharge Meds if any: NOT Prescribed or Continued at Discharge Cerebrovascular accident Inclusion Criteria At DC or during hospital stay patient has or had the following: CVA/TIA Diagnosis No Discharge Core Measures Meds if any: Prescribed or Continued at Discharge Meds if any: NOT Prescribed or Continued at Discharge Venous thromboembolism Inclusion Criteria VTE Diagnosis No VTE Type NONE VTE Confirmed by (Test) NONE Discharge Core Measures - Per Current guidelines, there needs to be overlap - treatment for the first 5 days of Warfarin therapy. - If discharged on Warfarin prior to 5 days of - overlap therapy, the patient will need to be - assessed for post discharge needs including - *Post discharge parental anticoagulation - *Warfarin and/or parental anticoagulation education - *Follow up date to check INR post discharge At least 5 days overlap therapy as Inpatient No Meds if any: Prescribed or Continued at Discharge Note: Overlap Therapy is Warfarin and Anticoagulant Meds if any: NOT Prescribed or Continued at Discharge
[2017-04-02 22:14] VITALS: BP 110/60
[2017-04-03 07:28] VITALS: BP 118/60
--- NOTE | 2017-04-03 08:21 | RADIOLOGY REPORT ---
EXAMINATION: XR PORTABLE CHEST CLINICAL INFORMATION: Shortness of breath. Febrile. Assess for atelectasis. COMPARISON: Chest x-ray 10/06/2016. TECHNIQUE: Portable AP 80 degrees semiupright view of the chest was obtained. FINDINGS: The lung grayson are moderately well-expanded bilaterally. Opacity at the left base may be consistent with pleural effusion, atelectasis or developing consolidation. No focal consolidation is demonstrated elsewhere. There are increased interstitial markings in the lower zones bilaterally. The cardiac silhouette is enlarged. There may be a small left-sided pleural effusion. The central pulmonary vasculature is prominent. There are sequelae of prior median sternotomy and CABG. There are no acute osseous findings. IMPRESSION: 1. There is mild cardiomegaly, mild prominence of the central pulmonary vasculature and increased interstitial markings. There is likely a small left-sided pleural effusion. The findings may be consistent with mild congestive heart failure. Consolidation at the left base cannot be excluded.
--- NOTE | 2017-04-03 08:35 | PN- General Surgery ---
Rose Dumont 04/03/17 0831: Subjective Subjective: Patient complaining of new onset shortness of breath that began this am. He denies chest pain. He states that he is winded after speaking, he also notes that he has a slightly productive cough. From an GI standpoint, he feels his symptoms have improved. He had a small bowel movement this am, his pain is improved, and he continues to pass flatus. He has no nausea or vomitting. Objective Vital Signs and I&Os Vital Signs Date Time Temp Pulse Resp B/P B/P Pulse O2 O2 Flow FiO2 Mean Ox Delivery Rate 04/03 08 72 122/60 04/03 0829 72 122/60 04/03 0728 98.2 68 18 118/60 94 Room Air 04/02 2214 99.4 75 19 110/60 94 Room Air 04/02 2109 75 110/60 04/02 2109 75 110/60 04/02 1351 100.4 70 18 124/60 93 Room Air 04/02 1005 78 138/64 04/02 1003 78 138/64 Intake & Output 04/03 1600 04/03 0800 04/03 0000 04/02 1600 04/02 0800 04/02 0000 Intake Total 920 1320 1100 240 920 Output Total 600 400 550 500 350 Balance 320 920 550 -260 570 Intake, IV 800 820 800 810 Intake, Oral 120 500 300 240 0 Intake, Other 110 Number 0 0 Bowel Movements Output, 0 100 50 Gastric Drainage Output, Urine 600 400 550 400 300 Patient 198 lb Weight Physical Exam: General: Alert and oriented x3, no acute distress Cardiac: Murmur, rrr Pulm: Expiratory wheeze, cleard with cough, diminished breath sounds left lower , pt appears to be in no respiratory distress Abdomen: Non-tender, non-distended, +bs Extremties: Moves all extremities, distal sensation intact. Skin warm and well perfused. Bilateral calves soft and non-tender. Assessment/Plan Assessment/Plan This is a 66 year old male, hospitalized for recurrent SBO, has opted to continue current conservative management, declined surgery. Feels GI issue has resolved, no abdominal pain, no c/o nausea or vomitting. Now reporting shortness of breath, new onset this am -Portable cxr shows possible consolidation vs pleural effusion left lower -Pt has had hx of fever, tmax 101.6 04/01, 100.4 04/02, now afebrile at 98.2 -o2 sat 94 on room air presently -Will obtain EKG and CBC Core Measures Venous Thromboembolism VTE Risk Factors Acute Medical Illness No Mechanical VTE Prophylaxis d/t N/A MechProphylax Ordered No VTE Pharm Prophylaxis d/t NA PharmProphylax ordered Jourdan Perez MD 04/03/17 1048: Attending MD Review Statement Attending Statement Attending MD Statement: examined this patient Attending Assessment/Plan: LOOKS AND FEELS BETTER. DYSPNEA FROM THIS MORNING BETTER. CXR LIKELY FLUID OVERLOAD. STOP IVF AND RESTART LASIX. HE WANTS TO GO HOME. CURRENTLY ON CLEARS. ADVANCE.
[2017-04-03 09:00] LABS: ABSOLUTE BASOPHIL COUNT 0 /CUMM (0.0-0.2); ABSOLUTE EOSINOPHIL COUNT 0.3 /CUMM (0.0-0.7); ABSOLUTE GRANULOCYTE CT 6.1 /CUMM (1.4-6.5)
[2017-04-03 09:14] LABS: ABSOLUTE LYMPH COUNT 1.7 /CUMM (1.2-3.4); ABSOLUTE MONOCYTE COUNT 0.6 /CUMM (0.10-0.60); BASOPHIL % 0.2 % (0.0-2.0); GRANULOCYTE % 70.9 % (42.2-75.2); MEAN CORPUSCULAR HGB 27.5 PG (27.0-31.0); MEAN CORPUSCULAR HGB CONC 33.2 G/DL (33.0-37.0); MEAN CORPUSCULAR VOLUME 82.7 FL (80.0-94.0); MEAN PLATELET VOLUME 7.8 FL (7.4-10.4); PLATELET COUNT 160 /CUMM (130-400); RBC DISTRIBUTION WIDTH 14.7 % (11.5-14.5); RED BLOOD CELL CT 4.33 /CUMM (4.70-6.10); WHITE BLOOD CELL COUNT 8.6 /CUMM (4.8-10.8)
[2017-04-03 09:23] LABS: HEMATOCRIT 35.8 % (42-52)
--- NOTE | 2017-04-03 11:16 | Cons- Medical ---
Karthikeyan Scanlon 04/03/17 1116: General Information and HPI Consulting Request Date of Consult: 04/03/17 Requested By: Chris CHRISTINE,Jourdan Roth Reason for Consult: Shortness of breath Source of Information: patient, old records Exam Limitations: no limitations History of Present Illness: This is a 66-year-old male with extensive cardiac history in the past, coronary artery disease, [place], CABG in 2016, congestive heart failure with reduced ejection fraction 50%, hypertension, GERD, hyperlipidemia, mitral stenosis, mitral valve repair, rheumatic heart disease status post mitral valvular plasty 40 years ago in [place], history of paroxysmal A. fib not on any anticoagulation, recurrent small bowel obstruction 7 times in the past was admitted under surgical service for management of small bowel obstruction on 03/30/2017. Medical consult was requested on 04/02/2017 for management of new onset shortness of breath. Patient was admitted for small bowel obstruction on 03/30/2017. Patient presented with abdominal pain, nausea, vomiting, bloating sensation. Of note he has history of recurrent small bowel obstructions. He was admitted 7 times in the past. Last admission was in February 2017 for SBO. He refused surgery. Never underwent any colonoscopy. CAT scan abdomen was done during this admission which showed high-grade small bowel obstruction. Patient was given supportive management with antiemetics, pain medication. NG tube was placed, he was nothing by mouth for 4 days. He was given 9 L of fluid for last 4 days. NG tube was removed on 04/03/2017 after abdominal x-ray showed relieved small bowel obstruction. He denied any abdomen pain, nausea, vomiting this morning. Started on clear liquid diet. He has 1 bowel movement this morning. However patient reports new onset shortness of breath since morning. He denied any chest pain, palpitations, fever, chills, productive cough. He denied any nausea, vomiting, abdomen pain. No urinary symptoms. He reports shortness of breath even at rest. He is requiring 3 pillows. He is requiring oxygen supplementation 2 L as he desaturated to 84% this morning. He has history of chronic systolic heart failure, takes Lasix 20 mg daily at home. Last echocardiogram was done in February 2016 which showed ejection fraction 50%. He follows up with Dr. Christine closely. Denies smoking, alcohol abuse, illicit drug abuse. Allergies/Medications Allergies: Coded Allergies: NO KNOWN ALLERGIES (06/24/10) Home Med List: Aspirin (Aspirin*) 81 MG TAB.CHEW 162 MG PO DAILY CAD Atorvastatin Calcium 40 MG TABLET 1 TAB PO DAILY CHOLESTEROL (Reported) Carvedilol 3.125 MG TABLET 1 TAB PO BID HEART HEALTH (Reported) Furosemide 20 MG TABLET 1 TAB PO DAILY DIURETIC (Reported) Hyoscyamine (Levsin) 0.125 MG TABLET 1 TAB PO Q4 PRN cramping Lisinopril 40 MG TABLET 1 TAB PO DAILY BP (Reported) Meloxicam (Mobic) 15 MG TABLET 1 TAB PO DAILY PRN pain Ondansetron (Zofran Odt) 4 MG TAB.RAPDIS 1 TAB SL TID PRN nausea Pantoprazole Sodium 40 MG TABLET.DR 1 TAB PO DAILY GI (Reported) Current Medications: Current Medications Sig/Krystal Start time Last Medication Dose Route Stop Time Status Admin Benzocaine/Menthol 1 COLE Q2P PRN 04/02 1600 AC 04/02 PO 2111 Carvedilol 3.125 MG BID 03/31 1000 AC 04/03 PO 0829 Dextrose/Sodium 1,000 ML .Q20H 03/30 2315 NM 04/03 Chloride IV 0144 Furosemide 20 MG DAILY 04/03 1033 AC 04/03 PO 1052 Heparin Sodium 5,000 UNIT Q8 03/31 0600 AC 04/03 (Porcine) SC 0516 Lisinopril 40 MG BID 03/31 1000 AC 04/03 PO 0829 Morphine Sulfate 2 MG Q2P PRN 03/30 2330 AC 04/02 IV 1316 Ondansetron HCl 4 MG Q6-PRN PRN 03/30 2315 AC IV Pantoprazole Sodium 40 MG DAILY 03/30 2330 04/03 IV 0853 Patient Medication 1 ED ONE ONE 04/02 1130 DC 04/02 Teaching ED 04/02 1131 1137 Phenol 2 SPRAY Q2P PRN 04/01 0745 AC 04/02 EXT 1314 Potassium Chloride 40 MEQ ONCE ONE 04/03 1115 DC PO 04/03 1116 Potassium Chloride 20 MEQ BID 04/03 1008 AC 04/03 PO 1026 Promethazine HCl 25 MG Q6-PRN PRN 03/30 2315 AC IV 04/06 2314 Review of Systems Review of Systems Constitutional: Denies: chills, diaphoresis, fever, malaise, weakness, unexplained weight loss. EENTM: Denies: blurred vision, double vision. Cardiovascular: Reports: orthopena. Denies: chest pain, edema, palpitations, peripheral edema, syncope. Respiratory: Reports: orthopnea, short of breath. Denies: cough, hemoptysis, sputum production, stridor, wheezing. GI: Denies: abdominal pain, bloating, constipation, distention, nausea, vomiting. Genitourinary: Denies: discharge, dysuria, frequency, hematuria. Musculoskeletal: Denies: back pain, gout, joint pain. Neurological/Psychological: Denies: anxiety, ataxia, headache, numbness. Past History Travel History Traveled to [place] past 21 day No Medical History Blood Transfusion Hx: No Neurological: NONE EENT: NONE Cardiovascular: CAD (sp CABG 2015), CHF, hypertension, hyperlipidemia, myocardial infarction, mitral stenosis (sp MVR), rheumatic fever with consequent mitral stenosis, Valvuloplasty in [place] 40 years ago. 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 MOTHER (CAD). Psychosocial History Where Do You Live? Home Services at Home: None Smoking Status: Never Smoked ETOH Use: occasional use Illicit Drug Use: denies illicit drug use Functional Ability ADLs Independent: dressing, eating, toileting, bathing. Ambulation: independent IADLs Independent: shopping, housework, finances, food prep, telephone, transportation , medication admin. Employment History Employment: Employed Profession/Employer: [employer] Exam & Diagnostic Data Last 24 Hrs of Vital Signs/I&O Vital Signs Date Time Temp Pulse Resp B/P B/P Pulse O2 O2 Flow FiO2 Mean Ox Delivery Rate 04/03 08 72 122/60 04/03 0829 72 122/60 04/03 0800 Room Air 04/03 0728 98.2 68 18 118/60 94 Room Air 04/02 2214 99.4 75 19 110/60 94 Room Air 04/02 2108 75 110/60 04/02 2108 75 110/60 04/02 1351 100.4 70 18 124/60 93 Room Air Intake & Output 04/03 1600 04/03 0800 04/03 0000 Intake Total 920 1320 Output Total 600 400 Balance 320 920 Intake, IV 800 820 Intake, Oral 120 500 Number 0 Bowel Movements Output, Urine 600 400 Physical Exam General Appearance: well developed/nourished, no apparent distress, alert, awake , comfortable Head: atraumatic, normal appearance Neck: normal inspection, supple, NO JVD Respiratory: normal breath sounds, chest non-tender, no respiratory distress, quiet respiration, lungs clear, crackles Cardiovascular: regular rate/rhythm Gastrointestinal: normal bowel sounds, soft, non-tender Back: normal inspection, normal range of motion Extremities: normal range of motion, no edema Neurologic/Psych: no motor/sensory deficits, awake, alert, oriented x 3, normal gait, normal mood/affect Last 24 Hrs of Labs/Armani: Laboratory Tests 04/03/17 0815: Anion Gap 10, Estimated GFR > 60, BUN/Creatinine Ratio 10.0, CBC w Diff NO MAN DIFF REQ, RBC 4.33 L, MCV 82.7, MCH 27.5, MCHC 33.2, RDW 14.7 H, MPV 7.8, Gran % 70.9, Lymphocytes % 19.4 L, Monocytes % 6.5, Eosinophils % 3.0, Basophils % 0.2, Absolute Granulocytes 6.1, Absolute Lymphocytes 1.7, Absolute Monocytes 0.6 , Absolute Eosinophils 0.3, Absolute Basophils 0 Diagnostic Data EKG Results EKG at the time of admission showed sinus tachycardia, left ventricle hypertrophy, no ST-T wave changes Assessment/Plan Assessment/Plan This is a 66-year-old male with extensive cardiac history in the past, coronary artery disease, [place], CABG in 2016, congestive heart failure with reduced ejection fraction 50%, hypertension, GERD, hyperlipidemia, mitral stenosis, mitral valve repair, rheumatic heart disease status post mitral valvular plasty 40 years ago in [place], history of paroxysmal A. fib not on any anticoagulation, recurrent small bowel obstruction 7 times in the past was admitted under surgical service for management of small bowel obstruction on 03/30/2017. Medical consult was requested on 04/02/2017 for management of new onset shortness of breath. Vitals stable, afebrile, heart rate 82-100, respiratory rate 18, blood pressure 140/70, saturating at 94 on 2 L oxygen now. Pertinent labs WBC 8.6, hemoglobin 11.9, hematocrit 35.8, platelet 160 Sodium 147, potassium 3.3, BUN 9 and creatinine 0.9 1. Acute on chronic systolic heart failure patient reports new onset shortness of breath since morning. He denied any chest pain, palpitations, fever, chills, productive cough. He reports shortness of breath even at rest. He is requiring 3 pillows. He is requiring oxygen supplementation 2 L as he desaturated to 84% this morning. He has history of chronic systolic heart failure, takes Lasix 20 mg daily at home. Last echocardiogram was done in February 2016 which showed ejection fraction 50%. He follows up with Dr. Christine closely. * Acute on chronic systolic heart failure most likely from fluid overload. Off note he received 9 L of fluid for last 3 days. * Chest x-ray was done this morning showing mild cardiomegaly, pulmonary venous congestion, increased interstitial marking, left-sided pleural effusion. * Maintain oxygen saturation above 88 * Provide oxygen supplementation if necessary * Please check proBNP * Patient needs IV diuretics-IV Lasix 20 mg daily. * Please check ins and outs * Please monitor daily weights * Please monitor daily BUN and creatinine, electrolytes * Consider echocardiogram and cardiology input * Please get one set of troponin and EKG * Transfer to tele floor for continuous tele monitoring. * Potassium 3.3, please replete potassium and magnesium * pls follow attending recommendations below * Provide heart healthy diet CAD continue aspirin, Lipitor, carvedilol Hypertension continue lisinopril GERD continue omeprazole Small bowel obstruction-management as per primary team dvt subcutaneous heparin Heart healthy diet Problem List: 1. Small bowel obstruction 2. Abdominal pain 3. Bloating Consult Acknowledgment - Thank you for your consult request. [facility] 5248: Assessment/Plan Consult Acknowledgment - Thank you for your consult request. Attending MD Review Statement Attending Statement Attending MD Statement: examined this patient, discuss w/resident/PA/MUD ANALYSIS SUPERVISOR, agreed w/resident/PA/MUD ANALYSIS SUPERVISOR, reviewed EMR data (avail) Attending Assessment/Plan: 66M PMH extensive cardiac history in the past, coronary artery disease, [place], CABG in 2016, congestive heart failure with reduced ejection fraction 50%, hypertension, GERD, hyperlipidemia, mitral stenosis, mitral valve repair, rheumatic heart disease status post mitral valvular plasty 40 years ago in [place], history of paroxysmal A. fib not on any anticoagulation, recurrent small bowel obstruction 7 times admitted to surgical service for small bowel obstruction, treated with NPO and NG tube on suction, improving steadily with NG removed today, now presenting with SOB, with crackles on exam, and fluid overload on CXR. On Lasix at home, not here. 1. Acute on chronic systolic CHF 2. Small bowel obstruction Recommendations - See resident note for full recommendations - Start Lasix, I/O, daily weights - Transfer to telemetry - Cardiology consult
[2017-04-03 15:18] VITALS: BP 120/84
[2017-04-03 16:37] VITALS: BP 122/76
--- NOTE | 2017-04-03 18:45 | Cons- Cardiology ---
General Information and HPI Consulting Request Date of Consult: 04/03/17 Requested By: Chris CHRISTINE,Jourdan Roth History of Present Illness: Reyes is a 64 year old male who carries a history of rheumatic heart disease, s/p surgical mitral valvuloplasty, performed in [place] approximately 40 years ago. dysrhythmia treated with Verapamil. This patient is now s/p cardiac surgery by Dr. Earl who placed a #25 Magna Ease pericardial valve in the mitral position. He also placed a fraft to the patient's LAD. Although LCX disease was noted on his cardiac catheterization, no bypass grafts were placed to the obtuse marginal branches of the LCX. His post operative course was complicated by atrial fibrillation but he is currently in a sinus rhythm. He now is much improved from a cardiac standpoint and at baseline is moderately active without chest pain, pressure, tightness, shortness of breath, lightheadedness or palpitations. Reyes presented to the hospital for evaluation of abdominal discomfort and distention accompanied by vomiting and the inability to hold down food or pills. He had frequent urges to move his bowels. Reyes was found to have a partial small bowel obstruction. This is a recurrent problem that he also had in the recent past. He was administered a large volume of IV fluids during this admission and is now short of breath without orthopnea. He denies chest discomfort, lightheadedness or palpitations. His last stress test showed an exercise tolerance of 6minutes and 8seconds following Joshua protocol with horizontal to downsloping ST depressions inferiorly with upsloping ST segments in the lateral leads. Rare PVC's noted. Nuclear imaging showed an EF of 36% with mild septal and anteroseptal hypokinesis. A moderate mid to apical anteroseptal primarily fixed defect was noted with minimal periinfarct ischemia. To Review Mr. Beal's Prior History: In May of 2007, the patient experienced an ST elevation anterior wall IN. A cardiac catheterization showed a nonexistent left main with separate take-off of the left circumflex and LAD. The LAD harbored a 99% long proximal stenosis which crossed the first and second diagonal branches. The first diagonal branch was a small to moderate size vessel with a 99% ostial stenosis. The second diagonal branch was a small vessel with a 95% ostial stenosis. The left circumflex had luminal irregularities and the right coronary artery was a dominant vessel with a 95% mid-stenosis. There was also a large RV marginal branch with a 95% ostial stenosis. This was a long diffusely diseased branch. Left ventriculography at the time showed an overall EF of 30% with inferoapical, apical, and anteroapical akinesis. In consideration of the above anatomy, the patient had a 2.75 x 28 mm Liberte` stent placed in the LAD. Postprocedure, he had a short run of nonsustained ventricular tachycardia. We then brought the patient back to the [facility] for angioplasty to the right coronary artery which received a 2.75 x 24 mm Liberte` stent. Both procedures went well with 0% residual stenosis. Allergies/Medications Allergies: Coded Allergies: NO KNOWN ALLERGIES (06/24/10) Home Med List: Aspirin (Aspirin*) 81 MG TAB.CHEW 162 MG PO DAILY CAD Atorvastatin Calcium 40 MG TABLET 1 TAB PO DAILY CHOLESTEROL (Reported) Carvedilol 3.125 MG TABLET 1 TAB PO BID HEART HEALTH (Reported) Furosemide 20 MG TABLET 1 TAB PO DAILY DIURETIC (Reported) Hyoscyamine (Levsin) 0.125 MG TABLET 1 TAB PO Q4 PRN cramping Lisinopril 40 MG TABLET 1 TAB PO DAILY BP (Reported) Meloxicam (Mobic) 15 MG TABLET 1 TAB PO DAILY PRN pain Ondansetron (Zofran Odt) 4 MG TAB.RAPDIS 1 TAB SL TID PRN nausea Pantoprazole Sodium 40 MG TABLET.DR 1 TAB PO DAILY GI (Reported) Review of Systems Review of Systems: A twelve point review of systems is unremarkable other than the above. Past History Travel History Traveled to [place] past 21 day No Medical History Blood Transfusion Hx: No Neurological: NONE EENT: NONE Cardiovascular: CAD (sp CABG 2016), CHF, hypertension, hyperlipidemia, myocardial infarction, mitral stenosis (sp MVR), rheumatic fever with consequent mitral stenosis, Valvuloplasty in [place] 40 years ago. 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 MOTHER (CAD). Psychosocial History Where Do You Live? Home Services at Home: None Smoking Status: Never Smoked ETOH Use: occasional use Illicit Drug Use: denies illicit drug use Functional Ability ADLs Independent: dressing, eating, toileting, bathing. Ambulation: independent IADLs Independent: shopping, housework, finances, food prep, telephone, transportation , medication admin. Employment History Employment: Employed Profession/Employer convenience store Exam & Diagnostic Data Vital Signs and I&O Vital Signs Date Time Temp Pulse Resp B/P B/P Pulse O2 O2 Flow FiO2 Mean Ox Delivery Rate 04/03 1641 Nasal 2.0L Cannula 04/03 1637 98.8 76 20 122/76 100 Nasal 2.0L Cannula 04/03 1518 98.5 77 20 120/84 97 Nasal Cannula 04/03 0829 72 122/60 04/03 0829 72 122/60 04/03 0800 Room Air 04/03 0728 98.2 68 18 118/60 94 Room Air 04/02 2214 99.4 75 19 110/60 94 Room Air 04/02 2109 75 110/60 04/02 2109 75 110/60 Intake & Output 04/03 1600 04/03 0800 04/03 0000 04/02 1600 04/02 0800 04/02 0000 Intake Total 920 1320 1100 240 920 Output Total 600 400 550 500 350 Balance 320 920 550 -260 570 Intake, IV 800 820 800 810 Intake, Oral 120 500 300 240 0 Intake, Other 110 Number 0 0 Bowel Movements Output, 0 100 50 Gastric Drainage Output, Urine 600 400 550 400 300 Patient 198 lb Weight Physical Exam: General: WD/ obese male in NAD; alert and oriented x3 HEENT: NC/AT, PERRL, EOMI Neck: no JVD, no carotid bruit Heart: RRR with 3/6 systolic murmur at the RUSB Lungs: scant crackles at the bases bilaterally Abdomen: soft, obese, NT, +ve bowel sounds Extremities: no edema Assessment/Plan Assessment/Plan * Reyes feels much better after receiving IV lasix. He likely has mild fluid overload due to IV fluid administration. There is no suspicion of an ACS. Continue Lasix 20mg IV BID for another day then change to 20mg PO daily. A repeat echo is not necessary. * Replete potassium to 4.0. Give kcl 40meq PO x two doses two hours apart. Consult Acknowledgment - Thank you for your consult request.
[2017-04-03 22:01] VITALS: BP 148/80
[2017-04-04 06:54] VITALS: BP 146/86
[2017-04-04 08:19] LABS: ABSOLUTE BASOPHIL COUNT 0.1 /CUMM (0.0-0.2); ABSOLUTE EOSINOPHIL COUNT 0.3 /CUMM (0.0-0.7); ABSOLUTE GRANULOCYTE CT 5.6 /CUMM (1.4-6.5); ABSOLUTE LYMPH COUNT 1.7 /CUMM (1.2-3.4); ABSOLUTE MONOCYTE COUNT 0.5 /CUMM (0.10-0.60); BASOPHIL % 0.7 % (0.0-2.0); EOSINOPHIL % 4.1 % (0-5); GRANULOCYTE % 67.8 % (42.2-75.2); HEMATOCRIT 36.3 % (42-52); MEAN CORPUSCULAR HGB 26.9 PG (27.0-31.0); MEAN CORPUSCULAR HGB CONC 32.6 G/DL (33.0-37.0); MEAN CORPUSCULAR VOLUME 82.5 FL (80.0-94.0); MEAN PLATELET VOLUME 8.4 FL (7.4-10.4); PLATELET COUNT 181 /CUMM (130-400); RBC DISTRIBUTION WIDTH 14.7 % (11.5-14.5); WHITE BLOOD CELL COUNT 8.2 /CUMM (4.8-10.8)
--- NOTE | 2017-04-04 12:59 | PN- Cardiology ---
Subjective Subjective: The patient is out of bed and ambulatory. According to the patient, he feels about 80% better than yesterday. He had a very mild diuresis with IV Lasix. Clinically he appears stable. Objective Vital Signs and I&Os Vital Signs Date Time Temp Pulse Resp B/P B/P Pulse O2 O2 Flow FiO2 Mean Ox Delivery Rate 04/04 1100 98.1 80 16 140/78 04/04 1059 98.1 18 16 140/78 04/04 0654 98.4 81 20 146/86 94 Room Air 04/03 2318 94 Room Air 04/03 220 98.8 92 20 148/80 94 04/03 2115 96 148/80 04/03 2114 96 148/80 04/03 1641 Nasal 2.0L Cannula 04/03 1637 98.8 76 20 122/76 100 Nasal 2.0L Cannula 04/03 1518 98.5 77 20 120/84 97 Nasal Cannula Intake & Output 04/04 1600 04/04 0800 04/04 0000 04/03 1600 04/03 0800 04/03 0000 Intake Total 120 50 920 1320 Output Total 325 350 600 400 Balance -205 -300 320 920 Intake, IV 800 820 Intake, Oral 120 50 120 500 Number 1 0 0 Bowel Movements Output, Urine 325 350 600 400 Physical Exam: General Appearance: well developed/nourished, no apparent distress, alert, awake , comfortable Head: atraumatic, normal appearance Neck: normal inspection, supple, NO JVD, carotids normal bilaterally Respiratory: Minimal scattered rhonchi otherwise clear bilaterally Cardiovascular: regular rate/rhythm, 2 to 3/6 systolic murmur unchanged Gastrointestinal: normal bowel sounds, soft, non-tender Extremities: normal range of motion, no edema Neurologic/Psych: Nonfocal Current Medications: Current Medications Sig/Krystal Start time Last Medication Dose Route Stop Time Status Admin Atorvastatin Calcium 40 MG 1700 04/03 2130 AC 04/03 PO 2243 Benzocaine/Menthol 1 COLE Q2P PRN 04/03 1730 AC PO Benzocaine/Menthol 1 COLE Q2P PRN 04/02 1600 DC 04/02 PO 2111 Carvedilol 3.125 MG BID 04/03 2200 AC 04/04 PO 1059 Carvedilol 3.125 MG BID 03/31 1000 DC 04/03 PO 0829 Furosemide 20 MG DAILY 04/05 1000 AC PO Furosemide 20 MG DAILY 04/04 1000 DC IV Furosemide 20 MG DAILY 04/04 1000 DC 04/04 IV 04/04 1001 1059 Furosemide 40 MG .STK-MED ONE 04/03 1305 DC IV 04/03 1306 Heparin Sodium 5,000 UNIT Q8 04/03 2200 AC 04/04 (Porcine) SC 0601 Heparin Sodium 5,000 UNIT Q8 03/31 0600 DC 04/03 (Porcine) SC 1312 Lisinopril 40 MG BID 04/03 2200 AC 04/04 PO 1100 Lisinopril 40 MG BID 03/31 1000 DC 04/03 PO 0829 Melatonin 5 MG AT BEDTIME 04/03 2200 AC 04/03 PO 2238 Morphine Sulfate 2 MG Q2P PRN 03/30 2330 WV 04/02 IV 1316 Ondansetron HCl 4 MG Q6-PRN PRN 04/03 1730 AC IV Ondansetron HCl 4 MG Q6-PRN PRN 03/30 2315 DC IV Pantoprazole Sodium 40 MG DAILY 04/04 1000 DC IV Pantoprazole Sodium 40 MG BID 04/04 1000 AC 04/04 IV 04/04 2201 1059 Pantoprazole Sodium 40 MG DAILY 03/30 2330 WV 04/03 IV 0853 Patient Medication 1 ED ONE ONE 04/03 1730 [facility] Teaching ED 04/03 1731 Patient Medication 1 ED ONE ONE 04/03 1730 [facility] Teaching ED 04/03 1731 Patient Medication 1 ED ONE ONE 04/03 1645 [facility] Teaching ED 04/03 1646 Phenol 2 SPRAY Q2P PRN 04/03 1730 04/03 EXT 2114 Phenol 2 SPRAY Q2P PRN 04/01 0745 WV 04/02 EXT 1314 Potassium Chloride 20 MEQ BID 04/03 1008 DC 04/03 PO 1026 Promethazine HCl 25 MG Q6-PRN PRN 04/03 1730 AC IV 04/10 1729 Promethazine HCl 25 MG Q6-PRN PRN 03/30 2315 DC IV 04/06 2314 Results Last 48 Hrs of Labs/Mics: Laboratory Tests 04/04/17 0655: Anion Gap 11, Estimated GFR > 60, BUN/Creatinine Ratio 16.3, Magnesium 1.8, CBC w Diff NO MAN DIFF REQ, RBC 4.40 L, MCV 82.5, MCH 26.9 L, MCHC 32.6 L, RDW 14.7 H, MPV 8.4, Gran % 67.8, Lymphocytes % 21.0, Monocytes % 6.4, Eosinophils % 4.1, Basophils % 0.7, Absolute Granulocytes 5.6, Absolute Lymphocytes 1.7, Absolute Monocytes 0.5, Absolute Eosinophils 0.3, Absolute Basophils 0.1 04/03/17 1403: Troponin I 0.02 04/03/17 1403: Magnesium 1.7, Yop-Y-[id number] Pept 3030 H 04/03/17 0815: Anion Gap 10, Estimated GFR > 60, BUN/Creatinine Ratio 10.0, CBC w Diff NO MAN DIFF REQ, RBC 4.33 L, MCV 82.7, MCH 27.5, MCHC 33.2, RDW 14.7 H, MPV 7.8, Gran % 70.9, Lymphocytes % 19.4 L, Monocytes % 6.5, Eosinophils % 3.0, Basophils % 0.2, Absolute Granulocytes 6.1, Absolute Lymphocytes 1.7, Absolute Monocytes 0.6 , Absolute Eosinophils 0.3, Absolute Basophils 0 Assessment/Plan Assessment/Plan Assessment: 1. Acute on chronic HFpEF related to volume overload 2. History of CAD 3. Hypertension 4. Status post small bowel obstruction 5. Anemia 6. Hypokalemia-improved Recommendations: -Continue as per Dr. Christine's recommendations. -Continue Lasix 20 mg by mouth daily -Continue as per the surgical team -The patient appears to be stable from a cardiac standpoint. Continue telemetry? No
--- NOTE | 2017-04-04 14:12 | PN- General Surgery ---
Subjective Subjective: FEELS WELL. DYSPNEA RESOLVING. TOLERATING DIET WITH BOWEL MOVEMENT. Objective Vital Signs and I&Os Vital Signs Date Time Temp Pulse Resp B/P B/P Pulse O2 O2 Flow FiO2 Mean Ox Delivery Rate 04/04 1100 98.1 80 16 140/78 04/04 1059 98.1 18 16 140/78 04/04 0654 98.4 81 20 146/86 94 Room Air 04/03 2318 94 Room Air 04/03 2201 98.8 92 20 148/80 94 04/03 2115 96 148/80 04/03 2114 96 148/80 04/03 1641 Nasal 2.0L Cannula 04/03 1637 98.8 76 20 122/76 100 Nasal 2.0L Cannula 04/03 1518 98.5 77 20 120/84 97 Nasal Cannula Intake & Output 04/04 1600 04/04 0800 04/04 0000 04/03 1600 04/03 0800 04/03 0000 Intake Total 120 50 920 1320 Output Total 325 350 600 400 Balance -205 -300 320 920 Intake, IV 800 820 Intake, Oral 120 50 120 500 Number 1 0 0 Bowel Movements Output, Urine 325 350 600 400 Physical Exam: GEN; LOOKS WELL. ABD; SOFT, NT, ND Assessment/Plan Assessment/Plan RESOLVED SBO FLUID OVERLOAD MANAGEMENT PER CARDIOLOGY. APPRECIATE INPUT. ANTICIPATE D/C HOME TOMORROW. Problem List: 1. Small bowel obstruction 2. Pulmonary edema Core Measures Venous Thromboembolism VTE Risk Factors Acute Medical Illness No Mechanical VTE Prophylaxis d/t N/A MechProphylax Ordered No VTE Pharm Prophylaxis d/t NA PharmProphylax ordered
[2017-04-04 14:20] VITALS: BP 148/82
--- NOTE | 2017-04-04 15:27 | PN- Att Addend ---
Attending Addendum Attending Brief Note Laboratory Tests 04/04/17 0655: Anion Gap 11, Estimated GFR > 60, BUN/Creatinine Ratio 16.3, Magnesium 1.8, CBC w Diff NO MAN DIFF REQ, RBC 4.40 L, MCV 82.5, MCH 26.9 L, MCHC 32.6 L, RDW 14.7 H, MPV 8.4, Gran % 67.8, Lymphocytes % 21.0, Monocytes % 6.4, Eosinophils % 4.1, Basophils % 0.7, Absolute Granulocytes 5.6, Absolute Lymphocytes 1.7, Absolute Monocytes 0.5, Absolute Eosinophils 0.3, Absolute Basophils 0.1 Vital Signs Date Time Temp Pulse Resp B/P B/P Pulse O2 O2 Flow FiO2 Mean Ox Delivery Rate 04/04 1420 98.2 76 20 148/82 97 Room Air 04/04 1100 98.1 80 16 140/78 04/04 1059 98.1 18 16 140/78 04/04 0654 98.4 81 20 146/86 94 Room Air 04/03 2318 94 Room Air 04/03 2201 98.8 92 20 148/80 94 04/03 2115 96 148/80 04/03 2114 96 148/80 04/03 1641 Nasal 2.0L Cannula 04/03 1637 98.8 76 20 122/76 100 Nasal 2.0L Cannula Assessment/Plan Assessment/Plan Shortness of breath- Resolving. pt on room air. On exam has some crackles on left base of lung. cont on lasix 20mg po daily for now. d/w pt the care plan. Bowel obstruction - resolved. management as per surgery. Consult Acknowledgment - Thank you for your consult request. Review of Systems Review of Systems Constitutional: Denies: chills, fever. Cardiovascular: Denies: chest pain. Respiratory: Denies: cough, short of breath. Genitourinary: Denies: dysuria. Skin: Denies: rash. Physical Exam Physical Exam General Appearance: well developed/nourished, alert, awake Head: atraumatic, normal appearance Eyes: Bilateral: PERRL, EOMI. Ears, Nose, Throat: hearing grossly normal Neck: normal inspection Respiratory: chest non-tender, Mild crackles left lung base Cardiovascular: regular rate/rhythm, normal peripheral pulses Neurologic/Psych: alert, oriented x 3, normal mood/affect Core Measures ACS in differential dx? No CVA/TIA Diagnosis: No Sepsis Present: No Sepsis Focused Exam Completed? No
[2017-04-04 21:50] VITALS: BP 148/84
[2017-04-05 06:51] VITALS: BP 148/88
[2017-04-05] MEDS ORDERED: LASIX20 M1 PO (09:05)
--- NOTE | 2017-04-05 09:08 | PN- General Surgery ---
Subjective Subjective: pt feeling well, no complaints. just finished a full breakfast without difficluty. 2bm yesterday, + flatus, no abd pain. minimal cough, no sob. Objective Vital Signs and I&Os Vital Signs Date Time Temp Pulse Resp B/P B/P Pulse O2 O2 Flow FiO2 Mean Ox Delivery Rate 04/05 0651 68.0 81 20 148/88 95 Room Air 04/04 2203 82 148/80 04/04 2203 82 148/80 04/04 2150 99.0 80 20 148/84 95 Room Air 04/04 1420 98.2 76 20 148/82 97 Room Air 04/04 1100 98.1 80 16 140/78 04/04 1059 98.1 18 16 140/78 Intake & Output 04/05 1600 04/05 0800 04/05 0000 04/04 1600 04/04 0800 04/04 0000 Intake Total 200 900 600 120 50 Output Total 500 600 325 350 Balance -300 300 600 -205 -300 Intake, Oral 200 900 600 120 50 Number 1 0 Bowel Movements Output, Urine 500 600 325 350 Physical Exam: Well-developed well-nourished no apparent distress. HEENT: Atraumatic, extraocular motion intact Neck: Supple, no lymphadenopathy Respiratory: No respiratory distress. Mild crackles noted left mid to lower lung, otherwise lungs clear Heart: Regular rate and rhythm no murmur Abdomen: Softly distended, positive bowel sounds, nontender Extremities: No edema, no calf pain Neuro: Alert and oriented x3 Psych: Mood affect normal, normal memory normal judgment. Skin: Warm and dry, no rash on exposed skin Assessment/Plan Assessment/Plan Small bowel obstruction resolved, CHF resolved Stable for discharge home today I asked that he takes his Lasix twice a day for today and tomorrow as he continues to have crackles noted at the left lung and a mild cough. He may resume regular dose of once per day at 20 mg Follow-up with cardiology and general surgery as outpatient Core Measures Venous Thromboembolism VTE Risk Factors Acute Medical Illness No Mechanical VTE Prophylaxis d/t N/A MechProphylax Ordered No VTE Pharm Prophylaxis d/t NA PharmProphylax ordered
--- NOTE | 2017-04-05 09:12 | Surgical Discharge Summary ---
Visit Information Visit Dates Admission Date: 03/30/17 Discharge Date: 04/05/17 History of Present Illness Chief Complaint: Abdominal pain, small bowel obstruction Medical History Blood Transfusion Hx: No Neurological: NONE EENT: NONE Cardiovascular: CAD (sp CABG 2015), CHF, hypertension, hyperlipidemia, myocardial infarction, mitral stenosis (sp MVR), rheumatic fever with consequent mitral stenosis, Valvuloplasty in [place] 40 years ago. 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 MOTHER (CAD). Psychosocial History Where Do You Live? Home Who Do You Live With? Family Services at Home: None What is Your Primary Language? Amharic ETOH Use: occasional use Review of Systems: see hpi Hospital Course Course Attending Physician: Chris CHRISTINE,Jourdan Roth Primary Care Physician: Ai CHRISTINE,Blanca Muñoz Hospital Course: Patient has history of recurrent small bowel obstructions who presented to the ER with same, he was placed nothing by mouth with an NG tube in place on IV fluids. His small bowel obstruction resolved however, likely due the IV fluids, he developed acute on chronic CHF and he was seen by medicine and Dr. Christine from cardiology. He was placed on IV Lasix and transferred to telemetry for further monitoring. He has been doing well the last 2 days, his diet has been advanced, he is having bowel movements daily and tolerating a normal diet. His CHF has resolved he is stable for discharge home Complications: None Allergies: Coded Allergies: NO KNOWN ALLERGIES (06/24/10) Disposition Summary Disposition Principal Diagnosis: Small bowel obstruction Additional Diagnosis: Congestive heart failure, acute on chronic Discharge Disposition: home or self care Discharge Instructions General Discharge Information Code Status: Full Code Patient's Diet: Regular, heart healthy Patient's Activity: As tolerated Follow-Up Instructions/Appts: 2 weeks with general surgery, one week with cardiology Medications at Discharge Discharge Medications: Stop taking the following medications: Furosemide (Furosemide) 20 MG TABLET ORAL DAILY Qty = 30 Continue taking these medications: Carvedilol (Carvedilol) 3.125 MG TABLET 1 Tablet ORAL TWICE DAILY Comments: Last Taken:03/07/16 Time:1030 Aspirin (Aspirin*) 81 MG TAB.CHEW 162 Milligram ORAL DAILY Days = 30 Comments: Last Taken:03/07/16 Time:1030 Pantoprazole Sodium (Pantoprazole Sodium) 40 MG TABLET.DR 1 Tablet ORAL DAILY Qty = 30 Atorvastatin Calcium (Atorvastatin Calcium) 40 MG TABLET 1 Tablet ORAL DAILY Qty = 30 Lisinopril (Lisinopril) 40 MG TABLET 1 Tablet ORAL DAILY Qty = 30 Hyoscyamine (Levsin) 0.125 MG TABLET 1 Tablet ORAL Every 4 hours as needed for cramping Qty = 20 Meloxicam (Mobic) 15 MG TABLET 1 Tablet ORAL DAILY as needed for pain Qty = 15 Ondansetron (Zofran Odt) 4 MG TAB.RAPDIS 1 Tablet SUBLINGUAL THREE TIMES DAILY as needed for nausea Qty = 10 Start taking the following new medications: Furosemide (Lasix) 20 MG TABLET 1 Tablet ORAL TWICE DAILY Qty = 30 No Refills Instructions: TAKE 2X A DAY FOR THE TODAY AND TOMORROW, THEN BACK TO ONCE PER DAY
[2017-04-05 10:47] VITALS: BP 148/88
--- NOTE | 2017-04-05 14:38 | PN- Att Addend ---
Attending Addendum Attending Brief Note Vital Signs Date Time Temp Pulse Resp B/P B/P Pulse O2 O2 Flow FiO2 Mean Ox Delivery Rate 04/05 1047 86.0 82 12 148/88 04/05 1047 82.0 86 12 04/05 0651 68.0 81 20 148/88 95 Room Air 04/043 82 148/80 04/04 2203 82 148/80 04/04 2150 99.0 80 20 148/84 95 Room Air Pt on room air, Pt being dced today and his sob is much better. pt will take lasix twice a day for nxt 2 days and then go back to his home dosing of once a day. Pt on exam has minimal crackles in left lung base. d/w pt the care plan.
== END 2017-04-05 11:49 | DRG 247 ==
LOC: ERH 18:42 → ERHI 21:55 → 2NB 23:07 → 1NO 04-03 16:09 → ENPENDDIS 04-05 09:05 → ENTRNSPT 04-05 11:29 → 1NO 04-05 11:49 → CMPTRNSPT 04-05 12:59
PROVIDERS: Nurse Practitioner; Physician Assistant; Physician Assistant Surgical
DX: K56.609 Unspecified intestinal obstruction, unspecified as to partial versus complete obstruction (principal); I11.0 Hypertensive heart disease with heart failure; K21.9 Gastro-esophageal reflux disease without esophagitis; E78.5 Hyperlipidemia, unspecified; I25.2 Old myocardial infarction; Z95.2 Presence of prosthetic heart valve; E87.6 Hypokalemia; D64.9 Anemia, unspecified; I50.23 Acute on chronic systolic (congestive) heart failure
CPT/HCPCS: 1NP; 2NBSP; 36415; 36592; 71045; 74021; 74177; 82436; 93005; 93010; 96374; 96375; J0131; J1644; J1940; J2405